=== PATIENT | male | born 1935 | race Caucasian/White ===

== ENCOUNTER 2016-08-24 11:18 | Inpatient (IN) | payer MEDICARE ==
[2016-08-24] VITALS (10 sets, daily range): BP systolic 96–115; BP diastolic 59–75; PULSE 66–78; RESP 20–28; TEMP 99.7; Ht 170.2 cm; Wt 66.6 kg
[~2016-08-24] VITALS: Ht 170.2 cm; Wt 66.6 kg
[~2016-08-24 11:18] MED LIST: ASPI-535 PO; CARV12.579 PO; IBUP-725 PO; TAMS-14 PO; ZOLP10TA5 PO
[2016-08-24] MEDS ORDERED: SOD CHLORIDE 0.9% 1,000 ML IV STA ×3 (11:22→12:05)
--- NOTE | 2016-08-24 11:29 | ERA ---
ER Documentation Chief Complaint Date/Time DATE: 08/24/16 TIME: 11:24 Chief Complaint BIB RA 89 FOR ALOC. BG 156 IN FILED. HPI 81-year-old gentleman who presents via EMS for altered mental status. It appears the patient was found wandering the parking lot by his neighbors. It appears that the patient had a left upper extremity surgery about 8 days ago. The patient is only alert and oriented times person. The patient was confused via EMS run and report. His last known normal was possibly yesterday with a conversation on the phone. In the field his EKG read a possible acute CT however on review this appear to be consistent with a borderline left bundle branch block. The patient denies any chest pain or shortness of breath. He can answer simple questions with a yes or no answer and he can answer to his name. Further history is very limited. ROS All systems reviewed and are negative except as per history of present illness. Medications Home Meds Reported Medications Oxycodone HCl/Acetaminophen (Percocet 10-325 mg Tablet) 1 Each Tablet, 1 EACH PO Q4H WHILE AWAKE Y for PAIN, TAB 08/24/16 Clopidogrel Bisulfate (Clopidogrel) 75 Mg Tablet, 75 MG PO DAILY, #30 TAB 08/24/16 Carbidopa-Levodopa* (Sinemet*) 25-100 Mg Tab, 1 TAB PO TID, TAB 08/24/16 Benazepril-Hydrochlorothiazide (Benazepril-Hydrochlorothiazide) 20-12.5 Mg Tablet, 1 TAB PO DAILY, #30 TAB 08/24/16 Tramadol Hcl* (Ultram*) 50 Mg Tablet, 50 MG PO BID Y for PAIN, TAB 08/24/16 Tamsulosin Hcl* (Flomax*) 0.4 Mg Cap.sr.24h, 0.4 MG PO DAILY 08/23/11 Discontinued Reported Medications Ibuprofen (Motrin) 400 Mg Tablet, 200 MG PO Y 08/23/11 Aspirin Ec (Aspir 81) 81 Mg Tablet.dr, 81 MG PO DAILY 08/23/11 Zolpidem Tartrate* (Zolpidem Tartrate*) 10 Mg Tablet, 10 MG PO HS 1/2 tab 08/23/11 Carvedilol* (Carvedilol*) 12.5 Mg Tablet, 12.5 MG PO BID 08/23/11 Allergies Allergies: Coded Allergies: No Known Allergy (Unverified , 08/24/16) PMhx/Soc History of Surgery: Yes (right shoulder surgery,right knee surgery ,kidney stones removed ) Anesthesia Reaction: No Hx Neurological Disorder: No Hx Respiratory Disorders: No Hx Cardiac Disorders: Yes (hypertension ) Hx Psychiatric Problems: No Hx Miscellaneous Medical Probl: Yes Hx Alcohol Use: No Hx Substance Use: No FmHx Unknown Physical Exam Vitals Vital Signs Date Time Temp Pulse Resp B/P Pulse Ox O2 Delivery O2 Flow Rate FiO2 08/24/16 16:31 99.2 77 17 112/63 100 Room Air 08/24/16 14:30 81 14 107/85 100 Room Air 08/24/16 14:00 83 12 109/83 100 Room Air 08/24/16 13:55 81 12 112/81 100 Room Air 08/24/16 13:30 97.6 84 12 94/61 100 Room Air 08/24/16 13:00 86 12 102/81 100 Room Air 08/24/16 12:30 6 18 92/68 86 Room Air 08/24/16 12:10 96 18 95/70 91 Room Air 08/24/16 11:40 109 18 106/81 97 Room Air 08/24/16 11:25 116 18 95/62 96 Room Air 08/24/16 11:22 117 19 93/69 97 08/24/16 11:22 98.5 Physical Exam General: Well developed, well nourished, no acute distress, appears to be somewhat confused, is able to answer simple questions and his name Head: Normocephalic, atraumatic. Eyes: Pupils equally reactive, EOM intact ENT: Dry mucous membranes Neck: Supple, no lymphadenopathy Respiratory: Lungs clear bilaterally, no distress Cardiovascular: Tachycardia, no murmurs, rubs, or gallops Abdominal: Soft, non-tender, non-distended, no peritoneal signs : Deferred MSK: No edema, no unilateral swelling, 5/5 strength, left upper extremity in a shoulder immobilizer Neurologic: Alert and oriented to person alone, moving all extremities, normal speech, no focal weakness, no cerebellar signs Skin: No rash Psych: Normal mood Result Diagram: 08/24/16 1129 08/24/16 1129 Results 24 hrs Laboratory Tests Test 08/24/16 11:20 08/24/16 11:26 08/24/16 11:29 08/24/16 11:37 Lactic Acid Level 2.7mmol/L Ammonia < 9umol/l Bedside Glucose 151mg/dL White Blood Count 15.510^3/ul Red Blood Count 4.2310^6/ul Hemoglobin 12.6g/dl Hematocrit 38.0% Mean Corpuscular Volume 89.8fl Mean Corpuscular Hemoglobin 29.8pg Mean Corpuscular Hemoglobin Concent 33.2g/dl Red Cell Distribution Width 13.5% Platelet Count 86433^3/UL Mean Platelet Volume 10.1fl Neutrophils % 81.2% Lymphocytes % 6.6% Monocytes % 11.3% Eosinophils % 0.1% Basophils % 0.2% Nucleated Red Blood Cells % 0.0/100WBC Neutrophils # 12.610^3/ul Lymphocytes # 1.010^3/ul Monocytes # 1.810^3/ul Eosinophils # 0.010^3/ul Basophils # 0.010^3/ul Nucleated Red Blood Cells # 0.010^3/ul Prothrombin Time 15.8Sec Prothrombin Time Ratio 1.2 INR International Normalized Ratio 1.25 Activated Partial Thromboplast Time 24.1Sec Sodium Level 133mmol/L Potassium Level 3.8mmol/L Chloride Level 100mmol/L Carbon Dioxide Level 23mmol/L Anion Gap 14 Blood Urea Nitrogen 28mg/dl Creatinine 1.56mg/dl Glucose Level 163mg/dl Calcium Level 9.3mg/dl Total Bilirubin 1.3mg/dl Direct Bilirubin 0.00mg/dl Indirect Bilirubin 1.3mg/dl Aspartate Amino Transf (AST/SGOT) 189IU/L Alanine Aminotransferase (ALT/SGPT) 56IU/L Alkaline Phosphatase 58IU/L Troponin I 63.800ng/ml Total Protein 7.3g/dl Albumin 3.9g/dl Globulin 3.40g/dl Albumin/Globulin Ratio 1.14 Free Thyroxine Index 3.36ug/ml Thyroxine (T4) 7.7ug/dl Triiodothyronine (T3) Uptake 43.7% Ethyl Alcohol Level < 10.0mg/dl Urine Opiates Screen NEGATIVE Urine Barbiturates NEGATIVE Urine Amphetamines Screen NEGATIVE Urine Benzodiazepines Screen NEGATIVE Urine Cocaine Screen NEGATIVE Urine Cannabinoids NEGATIVE Test 08/24/16 11:50 08/24/16 12:00 08/24/16 12:50 08/24/16 14:50 Blood Gas Specimen Source Blood arterial Arterial Blood Date Drawn 08/24/2016 12:20:06 PM Arterial Blood pH (Temp corrected) 7.475 Arterial Blood pCO2 (Temp correct) 31.1mmhg Arterial Blood pO2 (Temp corrected) 64.1mmHG Arterial Blood HCO3 22.4mmol/L Arterial Blood Base Excess -0.4mmol/L Arterial Blood Oxygen Saturation 93.1mmHG Dominik Test ACCEPTAB Arterial Blood Gas Puncture Site Right Radial Arterial Blood Carboxyhemoglobin 0.1% Arterial Blood Methemoglobin 0.4% Blood Gas A-a O2 Differential 48.4mmHg Oxyhemoglobin Percent 92.6% Total Hemoglobin 12.2g/dl Blood Gas Temperature 37.0C Blood Gas Modality ROOM AIR FiO2 21.0% Blood Gas Notified Whom MDA Blood Gas Notified Time 08/24/2016 12:25:31 PM Creatine Kinase 492IU/L Lactic Acid Level 2.2mmol/L Troponin I 66.400ng/ml Urine Color LT. YELLOW Urine Clarity SLIGHTLY CLOUDY Urine pH 6.0 Urine Specific [place] <=1.005 Urine Ketones NEGATIVE Urine Nitrite NEGATIVE Urine Bilirubin NEGATIVE Urine Urobilinogen 0.2 E.U./dL Urine Leukocyte Esterase 1+ Urine Microscopic RBC 0-2/HPF Urine WBC Clumps FEW Urine Microscopic WBC >50/HPF Urine Squamous Epithelial Cells FEW Urine Bacteria MODERATE Urine Yeast RARE Urine Hemoglobin 2+ Urine Glucose NEGATIVE% Urine Total Protein NEGATIVE Test 08/24/16 15:11 Lactic Acid Level 1.2mmol/L Current Medications Medications (Trade) Dose Ordered Sig/Alisson Route PRN Reason Start Time Stop Time Status Last Admin Dose Admin Sodium Chloride 1,000 ml @ 1,000 mls/hr Q1H STAT IV 08/24/16 11:22 08/24/16 12:21 DC 08/24/16 11:29 Sodium Chloride (NS) 1,000 ml @ 1,000 mls/hr Q1H STAT IV 08/24/16 11:34 08/24/16 12:33 DC 08/24/16 12:15 IV Flush 10 ml 10 ml STK-MED ONCE .ROUTE 08/24/16 11:51 08/24/16 11:52 DC Sodium Chloride (NS) 100 ml @ ud STK-MED ONCE .ROUTE 08/24/16 11:51 08/24/16 11:52 DC Iodixanol 100 ml 100 ml STK-MED ONCE .ROUTE 08/24/16 11:51 08/24/16 11:52 DC Sodium Chloride 1,000 ml @ 1,000 mls/hr Q1H STAT IV 08/24/16 12:05 08/24/16 13:04 DC 08/24/16 12:15 Cefepime HCl 50 ml @ 100 mls/hr ONCE STAT IVPB 08/24/16 12:06 08/24/16 12:35 DC 08/24/16 12:30 Vancomycin HCl (Vancocin) 250 ml @ 125 mls/hr ONCE ONCE IVPB 08/24/16 12:30 08/24/16 14:29 DC 08/24/16 13:00 Lidocaine (Xylocaine 1% (Mpf)) 5 ml ONCE ONCE SC 08/24/16 14:00 08/24/16 14:01 DC Heparin Sodium (Porcine) 4800 unit 4,800 unit ONCE STAT IV 08/24/16 13:35 08/24/16 13:37 DC 08/24/16 16:23 Heparin Sodium (Porcine) (Heparin 68215 Units/250 ml) 250 ml @ 0 mls/hr ONCE STAT IV 08/24/16 13:35 08/24/16 13:37 DC 08/24/16 16:30 Aspirin (Aspirin) 324 mg ONCE ONCE PO 08/24/16 14:30 08/24/16 14:31 DC 08/24/16 14:23 Miscellaneous Information (* Miscellaneous Pharmacy Order) DC previous hepa... ONCE ONCE XX 08/24/16 16:30 08/24/16 16:31 DC Heparin Sodium (Porcine) 4000 unit 4,000 unit PER PROTOCOL PRN IV aPTT<47 08/24/16 16:30 Heparin Sodium (Porcine) (Heparin 10993 Units/250 ml) 250 ml @ 9.6 mls/hr PER PROTOCOL IV 08/24/16 18:00 Ondansetron HCl 4 mg 4 mg Q6H PRN IV NAUSEA AND/OR VOMITING 08/24/16 16:30 Ceftriaxone Sodium (Rocephin) 50 ml @ 100 mls/hr Q24H IVPB 08/24/16 21:00 Famotidine 20 mg 20 mg QHS IV 08/24/16 21:00 Fluconazole 100 ml @ 100 mls/hr Q24H IVPB 08/24/16 20:00 Sodium Chloride (NS) 1,000 ml @ 75 mls/hr [id number] IV 08/24/16 21:00 Carbidopa/Levodopa (Sinemet (25/ 100)) 1 tab TID PO 08/24/16 21:00 Clopidogrel Bisulfate (plaVIX) 75 mg DAILY PO 08/25/16 09:00 Tamsulosin HCl (Flomax) 0.4 mg QPM PO 08/24/16 21:00 Tramadol HCl 50 mg 50 mg BID PRN PO PAIN 08/24/16 16:30 Sodium Chloride (NS) 100 ml @ ud STK-MED ONCE .ROUTE 08/24/16 16:41 08/24/16 16:42 DC Procedures/MDM EKG, MONITORS, & DIAGNOSTIC IMAGING: Rhythm strip: From the field Rate/Rhythm: Sinus tachycardia with borderline left bundle branch block Impression: No evidence of ischemia or arrhythmia EKG #1 EKG: I reviewed and interpreted a 12-lead EKG. Rhythm: Sinus tachycardia Ectopy: None Intervals: Borderline prolonged QRS ST segments: No ST segment elevations greater than 1 mm, no ST depressions or reciprocal changes T waves: No contiguous inversions EKG #2: EKG: I reviewed and interpreted a 12-lead EKG. Rhythm: Sinus tachycardia Ectopy: None Intervals: Borderline prolonged QRS ST segments: No ST segment elevations greater than 1 mm, no ST depressions or reciprocal changes T waves: No contiguous inversions Chest x-ray: I reviewed and interpreted a 1 view of the chest Mediastinum: No enlargement Cardiac silhouette: No cardiomegaly Airspace: Clear lung calderon bilaterally without evidence of pneumothorax Bones: No evidence of fracture CT brain: no acute process CTPA: IMPRESSION: 1. Normal CT pulmonary angiogram with no evidence of pulmonary artery embolism. 2. Mild atelectasis at the lung bases posteriorly. 3. Mildly dilated ascending aorta measuring 4 cm. 4. Cardiomegaly. 5. Coronary artery calcification. 6. Benign cysts in the upper kidneys. 7. Atrophic left kidney. 8. Mild degenerative changes of the spine. RPTAT: QQ LAB INTERPRETATION: Multiple abnormalities including leukocytosis of 15.5, arterial blood gas that shows low PaO2, lactic acidosis of 2.7-2.2, creatinine of 1.56, troponin of 63.8 , normal ammonia MEDICAL DECISION MAKING: The patient arrives with altered mental status of unclear etiology. A very broad differential exists including intracranial hemorrhage, subacute stroke, electrolyte disturbance, seizure disorder. Additionally consider possible pulmonary embolism given the patient's recent surgery and sinus tachycardia. The patient's EKG is abnormal but does not meet ST elevation myocardial infarction criteria. Serial EKGs will be appropriate. The patient is not having any chest pain or symptoms at this time. No indication for Trolley Car Overhauler activation. Continue to monitor. ER COURSE: A broad workup was initiated including laboratory testing, the patient was given IV fluids, blood cultures were taken. The patient had significant elevation of troponin at 63.8. His EKGs here showed no evidence of acute cardiac ischemia but significant Q waves. The patient likely has subacute myocardial infarction likely in the past 24-36 hours. He does not report any chest pain. I was able speak to Dr. Varghese, the brake lining driller environmental advisor. I reviewed the EKGs with him. He agrees that these are not consistent with ST elevation myocardial infarction. The patient is currently getting worked up for pulmonary embolism given recent surgical procedure. In the past Dr. Birmingham has performed angiography and stenting. Dr. Varghese recommends Dr. Birmingham be called. I spoke to Dr. Birmingham, we reviewed the laboratory testing, diagnostic imaging and clinical status. He recommends if no PE, heparin bolus and drip, medical support and the patient may benefit from nonemergent angiography. He will consult. The patient's blood pressure is hovering in the 90s and 100s, mean arterial pressures greater than 65. The patient does not require pressors. He may require pressor support therefore PICC line has been ordered. Heparin bolus and drip has been ordered. The patient's creatinine is slightly elevated at 1.56 but given concern for possible critical diagnosis of CTPA was recommended I believe the benefits outweigh the risks. Patient has been hydrated. The patient is altered and unable to give informed consent. There is no family available for informed consent. I believe the PICC line is necessary for continued treatment and care of this patient. The benefits outweigh the risks. A family friend has arrived. It appears the patient does not have family members. She states that the patient is almost returned to baseline. She was informed of the patient's critical status I kept the patient and/or family informed of laboratory and diagnostic imaging results throughout the emergency room course. DISPOSITION PLAN: ICU CONSULTATION: Accepting care team and consultations: I discussed the current laboratory data, diagnostic imaging and emergency care provided. Admitting team: Dr. Gar Admitting team indication: Insurance directed Consulting services: Cardiology Dr. Birmingham Sepsis Documentation: Patient's infectious symptoms have not stabilized and the patient is at risk of rapid decompensation. The patient will be admitted for careful hydration, antibiotic therapy, and infectious source control. SEVERE SEPSIS CRITERIA: Infectious source: Urinary tract infection End organ damage indicated by: [Lactate > 2.0 mmol/L Hypotension (SBP < 90 or >40 mmHG drop or MAP < 65) SEPSIS MANAGEMENT Time of recognition of severe sepsis/septic shock: Around 4 PM when urinalysis resulted. It appears that the lab has misplaced the original specimen. This was the only time his source was identified. 3 HOUR BUNDLE Blood cultures x 2 before broad-spectrum antibiotics: Yes 30 ml/kg NS bolus Completed Initial lactate 2.2 Repeat lactate 1.2 SEPTIC SHOCK ASSESSMENT: No lactic acid > 4.0 No persistent hypotension (SBP < 90 or 40 mmHg drop, MAP < 65) despite 30 mL/kg IV fluid bolus VOLUME REASSESSMENT FOR SEPTIC SHOCK: Reevaluation Time: 4 PM Temperature of 99.2 heart rate of 77 respiratory rate 17 blood pressure 112/63 pulse ox 100% on nasal cannula Heart Regular rate & rhythm Lungs No crackles Skin Warm & dry Cap Refill Less than 2 seconds Peripheral pulses Radially present PERSISTENT HYPOTENSION TREATMENT: Comfort care No Central line PICC line Vasopressor started Not required I considered further perfusion assessment with CVP measurement, SCVO2, bedside ultrasound volume assessment, passive leg raise, trial of further fluid bolus. And proceeded with 30 ml/kg fluid bolus of NSS, broad spectrum antbiotics, and admission. CRITICAL CARE Critical care time 35 minutes Emergent fluid management while maintaining close respiratory support. Provision of immediate and broad-spectrum antibiotic therapy. Simultaneous assessment for possible sources in order to direct targeted therapy. Consideration for invasive and chemical support to prevent cardiopulmonary collapse. Critical care time is independent of procedures performed. Departure Diagnosis: Primary Impression: Altered level of consciousness Additional Impressions: Non-ST elevation myocardial infarction (NSTEMI) Cardiogenic shock SIRS (systemic inflammatory response syndrome) Acute renal insufficiency Severe sepsis Urinary tract infection Qualified Code: N30.00 - Acute cystitis without hematuria Condition: Serious BORM, VERONICA A., MD August 24, 2016 11:29
[2016-08-24 11:41] LABS: ADD SCAN DIFF NO
[2016-08-24 11:45] LABS: ABNORMAL IP MESSAGE 1; BASOPHILS % 0.2 % (0.0-2.0); EOSINOPHILS % 0.1 % (0.0-7.0); HEMOGLOBIN 12.6 g/dl (14.0-18.0); LYMPHOCYTES % 6.6 % (15.0-51.0); MEAN CORPUSCULAR HEMOGLOBIN 29.8 pg (29.0-33.0); MEAN CORPUSCULAR HGB CONC 33.2 g/dl (32.0-37.0); MEAN CORPUSCULAR VOLUME 89.8 fl (82.0-101.0); MEAN PLATELET VOLUME 10.1 fl (7.4-10.4); MONOCYTE # 1.8 10^3/ul (0.3-0.9); MONOCYTES % 11.3 % (0.0-11.0); NEUTROPHIL # 12.6 10^3/ul (1.6-7.5); NEUTROPHILS % 81.2 % (39.0-77.0); PLATELET COUNT 279 10^3/UL (140-415); RED BLOOD COUNT 4.23 10^6/ul (4.70-6.10); RED CELL DISTRIBUTION WIDTH 13.5 % (11.5-14.5); WHITE BLOOD COUNT 15.5 10^3/ul (4.8-10.8)
[2016-08-24] MEDS ORDERED: SOD CHLORIDE 0.9% 100 ML ONE ×2 (11:51→16:41)
[2016-08-24] MEDS ORDERED: IODIXANOL LOCM 100 ML BTL ONE (11:51)
--- NOTE | 2016-08-24 11:56 | RADRPT ---
PROCEDURE: CT Brain without contrast. CLINICAL INDICATION: Neurologic deficit TECHNIQUE: A CT of the brain was performed on multidetector high-resolution CT scanner utilizing a xial sections from the skull base through the vertex without contrast. One or more of the following dose reduction techniques were used: Automated exposure control, Adjustment of the mA and/or kV acc ording to patient size, and/or use of iterative reconstruction technique. DOSE: CTDI = 44 mGy and the DLP = 720 mGy-cm. COMPARISON: None available FINDINGS: No acute intracranial hemorrhage, significant mass effect or midline shift. Patchy hypoattenuation o f the cerebral white matter is compatible with mild chronic microvascular ischemic changes. Vascular calcifications. Prominence of the cortical sulci and ventricles are related to mild cerebral volum e loss. No significant opacification of the visualized paranasal sinuses or mastoids. IMPRESSION: No acute intracranial findings. 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 RPTAT: AA .Asad King MD, MD Date Time Electronically viewed and signed by .Asad King MD, on 08/24/2016 11:56 .T/
[2016-08-24 12:01] LABS: INR 1.25; PROTIME 15.8 Sec (12.2-14.2); PT RATIO 1.2
[2016-08-24 12:02] LABS: PARTIAL THROMBOPLASTIN TIME 24.1 Sec (25.0-35.0)
[2016-08-24 12:04] LABS: ALANINE AMINOTRANSFERASE 56 IU/L (13-69); ALBUMIN 3.9 g/dl (3.3-4.9); ALBUMIN/GLOBULIN RATIO 1.14; ALKALINE PHOSPHATASE 58 IU/L (42-121); ANION GAP 14 (8-16); ASPARTATE AMINO TRANSFERASE 189 IU/L (15-46); BILIRUBIN,INDIRECT 1.3 mg/dl (0-1.1); BILIRUBIN,TOTAL 1.3 mg/dl (0.2-1.3); BLOOD UREA NITROGEN 28 mg/dl (7-20); CALCIUM 9.3 mg/dl (8.4-10.2); CARBON DIOXIDE 23 mmol/L (21-31); CHLORIDE 100 mmol/L (97-110); CREATININE 1.56 mg/dl (0.61-1.24); GLUCOSE 163 mg/dl (70-220); POTASSIUM 3.8 mmol/L (3.5-5.1); SODIUM 133 mmol/L (135-144); TOTAL PROTEIN 7.3 g/dl (6.1-8.1)
[2016-08-24 12:05] LABS: LACTIC ACID 2.7 mmol/L (0.5-2.2)
[2016-08-24] MEDS ORDERED: CEFEPIME 2GM/50 ML (PMX) 50 ML IVPB STA (12:06)
[2016-08-24 12:13] LABS: AMMONIA < 9 umol/l (9-30)
[2016-08-24 12:21] LABS: T3 UPTAKE 43.7 % (23.5-40.5)
[2016-08-24 12:26] LABS: AADO2 Arterial 48.4 mmHg (7.0-24.0); Allen Test ACCEPTAB; Arterial Base Excess -0.4 mmol/L (-3.0-3); Arterial COHb 0.1 % (0.0-3.0); Arterial Fraction of Oxyhgb 92.6 % (93.0-99.0); Arterial HCO3 22.4 mmol/L (22.0-26.0); Arterial MetHb 0.4 % (0.0-1.5); Arterial Total Hemglobin 12.2 g/dl (12.0-18.0); MODE ROOM AIR
--- NOTE | 2016-08-24 12:26 | RADRPT ---
PROCEDURE: XR Chest. CLINICAL INDICATION: Shortness of breath. Altered mental status. TECHNIQUE: Single frontal view. COMPARISON: None. FINDINGS: There is mild atelectasis at the left lung base. Superimposed pneumonia cannot be excluded. The julio cesar ngs are otherwise clear. The heart size is normal. There is no pleural effusion. There is no pneumothorax. IMPRESSION: 1. Mild left basilar atelectasis and possible pneumonia. 2. Otherwise normal chest radiograph. RPTAT: QQ .Luc Zuniga MD, Date Time Electronically viewed and signed by .Luc Zuniga MD, on 08/24/2016 12:26 .R/
[2016-08-24] MEDS ORDERED: VANCOMYCIN 1 GM (PMX) 250 ML IVPB ONE (12:30)
[2016-08-24 12:37] LABS: ETHANOL < 10.0 mg/dl
[2016-08-24] MEDS ORDERED: TRAM-40 PO (13:08)
[2016-08-24] MEDS ORDERED: BENA1TAB13 PO (13:08)
[2016-08-24] MEDS ORDERED: SIN25100 PO (13:09)
[2016-08-24] MEDS ORDERED: CLOP75TA27 PO (13:09)
[2016-08-24] MEDS ORDERED: OXYC-209 PO (13:11)
--- NOTE | 2016-08-24 13:19 | RADRPT ---
PROCEDURE: CT Pulmonary Angiogram. CLINICAL INDICATION: Chest pain and shortness of breath. Altered mental status. TECHNIQUE: CT pulmonary angiogram and a CT scan of the chest with contrast was performed. The pat ient was scanned following the uncomplicated intravenous administration of 80 cc of Visipaque 320 in travenous contrast. 2-D coronal reformatted images were obtained from the axial source images. In addition, 3-D post processing was performed. Total exam DLP is 524.75 mGy-cm. CTDIvol is 25.35 mGy . One or more of the following dose reduction techniques were used: Automated exposure control, adj ustment of the mA and/or kV according to patient size, use of iterative reconstruction technique. COMPARISON: None available. FINDINGS: The pulmonary arteries are normal with no filling defect or lack of enhancement to suggest pulmonary artery embolism. There is mild atelectasis at both lung bases posteriorly. The lungs are otherwise clear. There is no pulmonary nodule or mass lesion. There is no pneumothorax. There is no mediastinal or hilar lymphadenopathy or mass. There is no pleural effusion. There is no pericardial effusion. The thoracic aorta is not well opacified. The the ascending thoracic aorta is not dilated measuring 4 cm in diameter. The transverse aorta and descending aorta are normal in diameter. There is calc ification in the aorta consistent with atherosclerosis. The heart is mildly enlarged. There is cor onary artery calcification. Images through the upper abdomen demonstrate normal visualized portions of the liver, spleen, and ad renals. There is a benign cyst posteriorly in the upper right kidney. The left kidney is atrophic a nd there is a benign cyst superiorly in the left kidney. There are mild degenerative changes of the spine. The osseous structures are otherwise normal with no fracture or lytic lesion. IMPRESSION: 1. Normal CT pulmonary angiogram with no evidence of pulmonary artery embolism. 2. Mild atelectasis at the lung bases posteriorly. 3. Mildly dilated ascending aorta measuring 4 cm. 4. Cardiomegaly. 5. Coronary artery calcification. 6. Benign cysts in the upper kidneys. 7. Atrophic left kidney. 8. Mild degenerative changes of the spine. RPTAT: QQ .Luc Zuniga MD, MD Date Time Electronically viewed and signed by .Luc Zuniga MD, on 08/24/2016 13:19 .R/
[2016-08-24] MEDS ORDERED: HEPARIN 1000 UNITS/ML 10 ML INJ IV STA (13:35)
[2016-08-24] MEDS ORDERED: HEPARIN 25000 UNITS/250 ML 250 ML IV STA (13:35)
[2016-08-24] MEDS ORDERED: LIDOCAINE 1% (MPF) 5 ML VIAL SC ONE (14:00)
[2016-08-24 14:02] LABS: BARBITURATES NEGATIVE (NEGATIVE); BENZODIAZEPINES NEGATIVE (NEGATIVE); CANNABINOIDS NEGATIVE (NEGATIVE); COCAINE NEGATIVE (NEGATIVE); OPIATES NEGATIVE (NEGATIVE)
[2016-08-24] MEDS ORDERED: ASPIRIN 81 MG TAB PO ONE (14:30)
--- NOTE | 2016-08-24 15:13 | RADRPT ---
PROCEDURE: US guidance for PICC line CLINICAL INDICATION: PICC line placement TECHNIQUE: Multiple real-time images were acquired of the patient's arm utilizing a high resolutio n transducer. This was performed by the PICC line nurse for venous access. COMPARISON: None FINDINGS: Ultrasound guidance for PICC line placement. IMPRESSION: Ultrasound guidance for PICC line placement. RPTAT: AA .Dany Alaniz MD, MD Date Time Electronically viewed and signed by .Dany Alaniz MD, on 08/24/2016 15:13 .S/
[2016-08-24 15:19] LABS: ADD UMIC YES; URINE BILIRUBIN (Dip) NEGATIVE (NEGATIVE); URINE BLOOD (Dip) 2+ (NEGATIVE); URINE COLOR LT. YELLOW (YELLOW); URINE GLUCOSE (Dip) NEGATIVE (NEGATIVE); URINE KETONES (Dip) NEGATIVE (NEGATIVE); URINE LEUKOCYTE ESTERASE (Dip) 1+ (NEGATIVE); URINE NITRITE (Dip) NEGATIVE (NEGATIVE); URINE UROBILINOGEN (Dip) 0.2 E.U./dL (0.1-1.0)
[2016-08-24 16:00] LABS: BACTERIA,URINE MODERATE; URINE RBCS 0-2 /HPF (0)
[2016-08-24 16:02] LABS: SQUAMOUS EPITHELIAL CELL,UR FEW
[2016-08-24 16:03] LABS: URINE TOTAL PROTEIN (Dip) NEGATIVE (NEGATIVE)
--- NOTE | 2016-08-24 16:26 | RADRPT ---
PROCEDURE: Chest 1 views. CLINICAL INDICATION: Status post PICC line placed TECHNIQUE: AP views of the chest were obtained. COMPARISON: August 24, 2016 at 12:[address] August 24, 2016 FINDINGS: The heart size is within normal limits. Calcified atherosclerosis is noted in the aorta. Right-sided PICC line has its tip in the expected location of the distal superior vena cava. Central pulmonary vascular congestion and interstitial prominence is seen in both lungs. Scattered atelectasis is no saumya in both lungs. No consolidations are identified. No pneumothorax is seen. Osseous structures a re intact. IMPRESSION: Calcified atherosclerosis in the aorta. Right PICC line with its tip in the expected location of the distal superior vena cava. Central pulmonary vascular congestion and interstitial prominence in both lungs. Scattered atelectasis in both lungs. RPTAT: AA .Satinder Song MD, MD Date Time Electronically viewed and signed by .Satinder Song MD, MD on 08/24/2016 16:25 .P/
[2016-08-24] MEDS ORDERED: traMADol 50 MG TAB PO PRN (16:30)
[2016-08-24] MEDS ORDERED: ONDANSETRON 4 MG INJ IV PRN (16:30)
[2016-08-24] MEDS ORDERED: NITROGLYCERIN (SL) 0.4 MG TAB SL ONE (17:00)
[2016-08-24 18:36] LABS: CK-MB 27.3 ng/ml (0.0-2.4)
--- NOTE | 2016-08-24 18:43 | RADRPT ---
Echocardiogram Report Patient Name: OXANA COLORADO Gender: Male Date: 1935 Study Date: 24-Aug-2016 Adjunct English Instructor: Michele Foote RDCS Location: [facility] Ref. Physician: VERONICA PEREZ Quality: Adequate Procedures: Transthoracic echocardiogram with complete 2D, M-Mode, and doppler examination. Indications: NSTEMI. 2D/M Mode Doppler Measurement Value Normal Ranges Measurement Value Normal Ranges LVIDd 2D 4.9 3.5 - 5.6 cm AV Peak Nikunj 1.2 m/sec LVIDs 2D 2.8 2.1 - 4.1 cm AV Peak PG 5.4 mmHg LVPWd 2D 1.0 0.6 - 1.1 cm LVOT Peak Nikunj 0.8 m/sec IVSd 2D 1.1 0.6 - 1.1 cm LVOT Peak PG 2.7 mmHg AoR Diam 2D 3.1 2.0 - 3.7 cm MV E Peak Nikunj 0.6 m/sec EDV 2D 110.5 cm3 MV A Peak Nikunj 1.0 m/sec ESV 2D 22.0 cm3 MV E/A 0.6 LA Dimen 2D 3.9 2.3 - 4.0 cm MV Decel Time 131 msec MV Decel [place] 4 MV E/A 0.6 TR Peak Nikunj 2.5 m/sec TR Peak PG 25.1 mmHg RVSP 33.0 mmHg Findings Left Ventricle: Normal left ventricular cavity size. Mild concentric left ventricular hypertrophy. Severe left ventricular systolic dysfunction. Ejection fraction is visually estimated at 2530 %. Tissue Doppler/Mitral Doppler indices are consistent with impaired relaxation (Stage I diastolic dysfunction). These segments of the LV are hypokinetic apex, anteroseptum mid segment, mid septum segment, apical septum, Lateral apex, Lateral mid segment and anterior apex segment. Right Ventricle: Normal right ventricular size. Normal right ventricular systolic function. Left Atrium: The left atrium is normal in size. Right Atrium: The right atrium is normal in size. Mitral Valve: Mitral valve leaflets appear mildly thickened. Mild mitral annular calcification. Trace mitral regurgitation. Aortic Valve: No hemodynamically significant aortic stenosis by doppler. Aortic cusps appear mildly calcified. Trace aortic valve regurgitation. Tricuspid Valve: Normal appearance of the tricuspid valve. Estimated peak PA systolic pressure 33 mmHg. There is mild tricuspid regurgitation. Pulmonic Valve: Pulmonic valve not well visualized. Pericardium: Trivial pericardial effusion. Aorta: Normal aortic root. IVC: Dilated IVC with respiratory collapse consistent with elevated right atrial pressure. Conclusions 1.Normal left ventricular cavity size. Mild concentric left ventricular hypertrophy. Severe left ventricular systolic dysfunction. Ejection fraction is visually estimated at 25-30 %. Tissue Doppler/Mitral Doppler indices are consistent with impaired relaxation (Stage I diastolic dysfunction). These segments of the LV are hypokinetic apex, anteroseptum mid segment, mid septum segment, apical septum, Lateral apex, Lateral mid segment and anterior apex segment. 2.Trace mitral regurgitation. 3.Trace aortic valve regurgitation. 4.Estimated peak PA systolic pressure 33 mmHg. There is mild tricuspid regurgitation. Electronically Signed By: Errol Birmingham 24-Aug-2016 18:43:22 -0700 Patient Name: OXANA COLORADO Study Date: 24-Aug-2016 [id number]
[2016-08-24 18:44] LABS: TROPONIN-I 49.8 ng/ml (0.00-0.12)
[2016-08-24] MEDS: HEPARIN 25000 UNITS/250 ML 250 ML IV SCH (20:07)
--- NOTE | 2016-08-24 20:33 | HP ---
DATE OF ADMISSION: 08/24/2016 PRESENTING COMPLAINT: Altered mental status. HISTORY OF PRESENTING COMPLAINT: Unable to get a history from the patient due to his mentation; however, this is an 81-year-old male who was brought in by ambulance because of alteration of mental status. Apparently, per report from the emergency room doctor, the patient was found wandering in the parking lot by his neighbors and the only history we were really able to obtain is that he had a left upper extremity surgery a few days ago, the indication of which was not clear. There is no family at the bedside. Apparently, when the patient first came, he was alert to his own name, but was not oriented to his location, but was said to have been normal as of yesterday with a conversation with someone else on the telephone. There was concern about an acute ST elevation myocardial infarction on an EKG in the field, but this was not consistent with an EKG done in the emergency room. When patient was asked about chest pain , he replied no; however, for me, he is not cooperative with exam. No other history is obtainable. REVIEW OF SYSTEMS: Unobtainable due to patient's overall status. HOME MEDICATIONS 1. Percocet. 2. Plavix. 3. Carbidopa/levodopa. 4. Benazepril/hydrochlorothiazide. 5. Ultram. 6. Flomax. PAST SURGICAL HISTORY: Per report, he has had right shoulder surgery, right knee surgery and removal of kidney stones, and now with left upper extremity surgery. ALLERGIES: THE PATIENT HAS NO KNOWN DRUG ALLERGIES. FAMILY HISTORY: Unobtainable. SOCIAL HISTORY: Also unknown. PHYSICAL EXAMINATION VITAL SIGNS: At the time of my review, temperature 97.6, pulse 81, respirations 14, blood pressure 107/85, saturations 100% on room air. GENERAL: The patient was sleepy and did not want to be bothered, but he would look comfortable at rest. HEENT: Head was normocephalic, without evidence of trauma. Pupils were unequal , but both reactive. Mucous membranes were dry. The patient was not intubated. NECK: Supple, no obvious JVD noted. RESPIRATORY: Diminished breath sounds, but clear. CARDIOVASCULAR: Heart sounds are S1 and S2. He was tachycardic when he first came in, but at this time, he is not. No murmurs. ABDOMEN: Soft, nontender, nondistended, normoactive bowel sounds. EXTREMITIES: No lower extremity edema. His left upper extremity is in a splint but he seems to no other abnormality noted. NEUROLOGIC: Detailed neurologic exam could not be done. SKIN: No gross rash. PSYCHIATRIC: Uncooperative. LABORATORY VALUES: We have a serum sodium of 133, which is on the low side. BUN and creatinine are elevated at 28 and 1.56. Random glucose is normal at 163. There is a mild hyperbilirubinemia with an indirect bilirubin of 1.3. AST is also mildly elevated at 189, but ALT is normal. Alkaline phosphatase is also normal. Troponin was significantly elevated at 63.8. Ammonia was less than 9. A thyroid free T4 was normal. His hematology had a leukocytosis of 15, 000; with a hemoglobin of 12, but with normocytosis and normochromia. He does have a neutrophilic predominance at 81%, of which most of those are monocytes. His urinalysis had a lot of the white blood cells and leukocyte esterase was positive with moderate bacteria . He also had 2+ hemoglobin. Coag profile, his indices were mildly elevated with an INR of 1.2 and a PT of 15.8. Toxicology screen was negative. IMAGING: The patient had multiple imaging studies done today. First was a chest x-ray that showed mild left basilar atelectasis and possible pneumonia; otherwise, normal. Then a CT scan of the brain that showed mild chronic microvascular disease and intracranial atherosclerosis without acute intracranial findings. A CTA of the chest that was read as normal, without evidence of pulmonary embolism, but he did have some posterior atelectasis. His ascending aorta was mildly dilated to 4 cm. Cardiomegaly was noted with coronary artery calcifications. Benign cysts in upper kidneys, an atrophic left kidney and mild degenerative changes of the spine. DATA: He had a PICC line also inserted while in the emergency room. ELECTROCARDIOGRAM: His EKG here was reviewed by myself and it was abnormal, but there was no consistent ST elevation or reciprocal depressions. His EKG was also reviewed by STEMI manager it security, and was assessed not to be a STEMI. DIAGNOSES An 81-year-old male found wandering in the parking lot, now managed for the followin. Acute encephalopathy for which the source is not quite clear. It could be secondary to the following. 2. Severe non-ST elevation myocardial infarction with troponin of 63. Rule out underlying rhabdomyolysis. 3. Acute renal failure/dehydration, likely superimposed on chronic kidney disease with atrophic left kidney on CT. 4. Urinary tract infection bacteria/yeast. 5. Recent left upper extremity surgery. 6. Probable coronary artery disease as patient is on Plavix versus a history of previous stroke. 7. Chronic Parkinson disease, on carbidopa/levodopa, which might indicate an underlying chronic encephalopathy. 8. High blood pressure with good control. 9. Benign prostatic hypertrophy. 10. Mild transaminitis with elevated AST and hyperbilirubinemia, for which, again, the source is not clear. PLAN: Admit the patient. The patient is going to be admitted to the intensive care unit because of his severe NSTEMI. At this point, Cardiology has opted to medically manage and intervene when patient is more stable. So we will continue to trend troponins and get a 2D echo. The patient will be started on a Heparin drip. Cardiology consultation will be obtained, and we will follow up cardiology recommendations. The patient was seen and reviewed by Dr. Birmingham by telephone. We will see if he will continue to follow in consultation. We will commence empiric antibiotics to cover for pneumonia, as well as urinary tract infection and I also included antifungal in his regimen. We will gently rehydrate, obtain blood as well as urine cultures. We will continue on his home meds as safely indicated, and further interventions will depend on his clinical course. I am unable to review this plan of care with the patient. The patient barely speaking to me at this time. Will review again in the morning when hopefully his mentation has improved. Further interventions will depend on his clinical course. For prophylaxis, he is going to be on a Heparin drip and he going to be on intravenous Pepcid as well. Dictated By: YAMILKA WOODRUFF MD, BA/MOHAMUD Conf#: [id number] DID#: [id number] MTDAnn
[2016-08-24] MEDS: FAMOTIDINE 20 MG INJ IV SCH (20:40)
[2016-08-24] MEDS: SOD CHLORIDE 0.9% 1,000 ML IV SCH (20:40)
[2016-08-24] MEDS: TAMSULOSIN (SR) 0.4 MG CAP PO SCH (20:41)
[2016-08-24] MEDS: ATORVASTATIN 80 MG TAB PO SCH (20:41)
[2016-08-24] MEDS: CEFTRIAXONE 1 GM/50 ML (PMX) 50 ML IVPB SCH (20:41)
[2016-08-24] MEDS: CARBIDOPA/LEVODOPA (25/100) TAB PO SCH (20:41)
--- NOTE | 2016-08-24 20:55 | CONS ---
DATE OF ADMISSION: 08/24/2016 DATE OF CONSULTATION: 08/24/2016 CARDIOLOGY CONSULTATION REASON FOR CONSULTATION: Acute myocardial infarction. REQUESTING PHYSICIAN: Dr. Woodruff from the hospitalist service [facility] HISTORY OF PRESENT ILLNESS: Mr. 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 Kaiden Mcclellan. The patient post-surgery and had been found to be confused and wanderin g by EMS. The patient was brought to the emergency department here at [facility]. Upon arrival, temperature of 98.5, blood pressure 93/69, pulse 117, respiration 19, satting 97%. The patient's labs, sodium 133, potassium 3.8, creatinine 1.56, BUN 28. Troponin positive at 63.8, AST 189, T4 3.36. Tox screen negative. UA positive. The patient had a CT, CTA revealing mild atel ectasis at the lung bases, mildly dilated ascending aorta, cardiomegaly, atrophic left kidney. The patient underwent a chest x-ray with mild left basilar atelectasis and possible pneumonia and a head CT that revealed no acute intracranial findings, mild chronic microvascular disease and intracrania l atherosclerosis. The patient's electrocardiogram revealed sinus tach at a rate 118 with left axis deviation, anterior anteroseptal Q's across the precordium. The patient thus far in the emergency department has been treated with IV fluid hydration with improvement in his systolic blood pressure, aspirin 325 mg, heparin IV, vancomycin, cefepime and now awaits admit to the ICU. At this time, th e patient remains confused, but denies chest pain, shortness of breath. PAST MEDICAL HISTORY: As above in HPI. MEDICATIONS CURRENTLY IN THE HOSPITAL: 1. Plavix 75 mg daily. 2. Ceftriaxone IV daily. 3. Pepcid 20 mg IV at bedtime. 4. Sinemet 1 tab p.o. t.i.d. 5. Flomax 0.4 mg daily. 6. Fluconazole. 7. Heparin IV. 8. Zofran p.r.n. 9. Tramadol p.r.n. ALLERGIES: NO KNOWN DRUG ALLERGIES. SOCIAL HISTORY: No tobacco, ETOH or illicit drug use. FAMILY HISTORY: No history of sudden cardiac or early CAD. REVIEW OF SYSTEMS: As above in HPI. CONSTITUTIONAL: No fevers, chills. PULMONARY: No current shortness of breath. CARDIOVASCULAR: Acute VT. No current chest pain. GASTROINTESTINAL: No vomiting. GENITOURINARY: Urinary tract infection. MUSCULOSKELETAL: Degenerative joint disease. NEUROLOGIC: Encephalopathy. PHYSICAL EXAMINATION: VITAL SIGNS: Temperature 98.5, blood pressure most recently 112/63, pulse 77, respiratory rate 17, satting 100%. GENERAL: The patient is alert, confused. NECK: JVP of 8 cm of water. CHEST: Upper airway transmitted rhonchorous sounds. HEART: Regular rate and rhythm. Normal S1, S2, I/ systolic murmur. ABDOMEN: Positive bowel sounds, soft. EXTREMITIES: No edema, 1+ pulses bilaterally, it is posterior tibial. LABORATORIES: As above in HPI with a repeat troponin coming back at 66.4, from 63.8. No CK-MB with that. IMAGING STUDIES: As above in HPI. No further imaging studies for my review at this time. ECG: As above in HPI. No further electrocardiograms for my review at this time. IMPRESSION: 1. Acute myocardial infarction. Currently with ongoing renal failure and denies chest pain. Hemod ynamically stable. 2. Abnormal electrocardiogram with anterior anteroseptal Q's indicative of the patient's infarction that has probably just subacutely occurred. 3. History of percutaneous transluminal coronary angioplasty and stent placement in 2011 with possi ble recent stoppage of Plavix for surgery per chart biopsy. 4. Status post recent left upper extremity surgery in the last 1 week. 5. Renal failure. 6. Encephalopathy. 7. Hyponatremia. 8. Urinary tract infection. 9. Leukocytosis. 10. Anemia. RECOMMENDATIONS: 1. At this time, would admit the patient to sock mender in the ICU for close observation. 2. Continue to trend the patient's cardiac enzymes and include CK, CK-MB in the setting of renal fa ilure, to assess for any ongoing damage. 3. Continue the patient's Plavix and heparin. We will add aspirin to the patient's regimen additio ephraim. 4. We will follow the patient's 2D echo done today for assessment of ejection fraction, wall motion and any major valve abnormalities. 5. Check a fasting lipid panel for general risk stratification and we will initiate the patient on lipid lowering medication as necessary. 6. Continue the patient's antibiotics and follow up all culture data. 7. The patient will likely require left heart catheterization with possible probable PTCA and stent placement which will occur once the patient's mental status and hemodynamics and renal function hav e been optimized. Thank you for allowing me to take part in the care of this patient. I will continue to follow along very closely with you. Further recommendations will be made as the patient progresses through his inpatient hospital clinical course. Dictated By: CHANTALE PIÑA/MOHAMUD Conf#: [id number] DID#: [id number] CC: VERONICA BURR MD; YAMILKA WOODRUFF MD;*End*
[2016-08-24] MEDS: FLUCONAZOLE 200 MG/NS (PMX) 100 ML IVPB SCH (21:42)
[2016-08-25] VITALS (24 sets, daily range): BP systolic 87–136; BP diastolic 44–90; PULSE 60–86; RESP 14–29
[2016-08-25 01:23] LABS: CK-MB 18.5 ng/ml (0.0-2.4); TROPONIN-I 42.2 ng/ml (0.00-0.12)
[2016-08-25] MEDS: HEPARIN 1000 UNITS/ML 10 ML INJ IV PRN ×2 (02:30→15:41)
[2016-08-25 06:33] LABS: ADD SCAN DIFF NO
[2016-08-25 06:51] LABS: BASOPHILS % 0.4 % (0.0-2.0); EOSINOPHILS # 0.1 10^3/ul (0.0-0.5); EOSINOPHILS % 0.6 % (0.0-7.0); HEMATOCRIT 30.2 % (42.0-52.0); HEMOGLOBIN 9.8 g/dl (14.0-18.0); LYMPHOCYTES # 1.1 10^3/ul (0.8-2.9); LYMPHOCYTES % 13.1 % (15.0-51.0); MEAN CORPUSCULAR HEMOGLOBIN 29.8 pg (29.0-33.0); MEAN CORPUSCULAR HGB CONC 32.5 g/dl (32.0-37.0); MEAN CORPUSCULAR VOLUME 91.8 fl (82.0-101.0); MEAN PLATELET VOLUME 10.5 fl (7.4-10.4); MONOCYTE # 0.9 10^3/ul (0.3-0.9); MONOCYTES % 10.8 % (0.0-11.0); NEUTROPHIL # 6.4 10^3/ul (1.6-7.5); NEUTROPHILS % 74.6 % (39.0-77.0); PLATELET COUNT 192 10^3/UL (140-415); RED BLOOD COUNT 3.29 10^6/ul (4.70-6.10); RED CELL DISTRIBUTION WIDTH 13.9 % (11.5-14.5); WHITE BLOOD COUNT 8.5 10^3/ul (4.8-10.8)
[2016-08-25 07:43] LABS: CALCIUM 8.2 mg/dl (8.4-10.2); MAGNESIUM 1.9 mg/dl (1.7-2.5); POTASSIUM 3.4 mmol/L (3.5-5.1)
[2016-08-25] MEDS: ASPIRIN 81 MG TAB PO SCH (08:13)
[2016-08-25] MEDS: CARBIDOPA/LEVODOPA (25/100) TAB PO SCH ×3 (08:14→20:48)
[2016-08-25] MEDS ORDERED: CLOPIDOGREL 75 MG TAB PO SCH (09:00)
[2016-08-25] MEDS: SOD CHLORIDE 0.9% 1,000 ML IV SCH (10:47)
[2016-08-25] MEDS ORDERED: POTASSIUM CHLORIDE (SR) 20 MEQ TAB PO STA (13:12)
--- NOTE | 2016-08-25 13:19 | CONS ---
Date/Time of Note Date/Time of Note DATE: 08/25/16 TIME: 13:08 Assessment/Plan Assessment/Plan Chief Complaint/Hosp Course IMPRESSION: 1. Acute myocardial infarction. Currently with ongoing renal failure and denies chest pain. Hemodynamically stable.-currently downtrending cardiac enzymes 2. Abnormal electrocardiogram with anterior anteroseptal Q's indicative of the patient's infarction that has probably just subacutely occurred. 3. History of percutaneous transluminal coronary angioplasty and stent placement in 2011 with possible recent stoppage of Plavix for surgery per chart biopsy. 4. Status post recent left upper extremity surgery in the last 1 week. 5. Renal failure-improved 6. Encephalopathy. 7. Hyponatremia. 8. Urinary tract infection. 9. Leukocytosis. 10. Anemia. 11.Cardiomyopathy-decreased LVEF 25-30 by echo by s admit REcc: -Tele -serial ecg's -Continue asa/heparin -Resume plavix -Trend cardiac enzymes -Continue statin -Follow volume status closely and decrease rate of IVF -replete [facility] -[facility] with possible PTCA/STENT Problems: Consultation Date/Type/Reason Admit Date/Time August 24, 2016 at 16:07 Initial Consult Date 08/24/2016 Type of Consultation: Cardiology Reason for Consultation Acute [place] Referring Provider: YAMILKA WOODRUFF Exam/Review of Systems Vital Signs Vitals Vital Signs Date Time Temp Pulse Resp B/P Pulse Ox O2 Delivery O2 Flow Rate FiO2 08/25/16 09:00 86 21 111/86 98 Nasal Cannula 2.0 08/25/16 08:00 98.1 Intake and Output 08/24/16 08/24/16 08/25/16 15:00 23:00 07:00 Intake Total 2300 ml 1458.5 ml 756.5 ml Output Total 820 ml 295 ml Balance 2300 ml 638.5 ml 461.5 ml Exam Review of Systems: CONSTITUTIONAL: No fevers, chills. PULMONARY: No sob CARDIOVASCULAR: No chest pain/palpitations GASTROINTESTINAL: No nausea/vomiting. GENITOURINARY: No hematuria/dysuria. MUSCULOSKELETAL: No myagias/arthalgias. PSYCHIATRIC: The patient denies depression. NEUROLOGIC: mild generalized weakness Constitutional: alert Psych: confusion Head: normocephalic ENMT: mucosa pink and moist Neck: jvd (8 cm water), supple Respiratory: diminished breath sounds (at basers/B) Cardiovascular: regular rate and rhythm Gastrointestinal: non-tender, soft Musculoskeletal: muscle tone (normal), other (shoulder covered by dressing) Extremities: edema (none) Neurological: confused Results Result Diagram: 08/25/16 0545 08/25/16 0545 Results 24 hrs Laboratory Tests Test 08/24/16 14:50 08/24/16 15:11 08/24/16 18:00 08/25/16 00:30 Urine Color LT. YELLOW Urine Clarity SLIGHTLY CLOUDY Urine pH 6.0 Urine Specific Saxon <=1.005 L Urine Ketones NEGATIVE Urine Nitrite NEGATIVE Urine Bilirubin NEGATIVE Urine Urobilinogen 0.2 E.U./dL Urine Leukocyte Esterase 1+ H Urine Microscopic RBC 0-2 Urine WBC Clumps FEW Urine Microscopic WBC >50 Urine Squamous Epithelial Cells FEW Urine Bacteria MODERATE Urine Yeast RARE Urine Hemoglobin 2+ H Urine Glucose NEGATIVE Urine Total Protein NEGATIVE Lactic Acid Level 1.2 Activated Partial Thromboplast Time 107.6 *H 43.7 H Creatine Kinase 503 H 392 H Creatine Kinase Index 5.4 4.7 Creatinine Kinase MB (Mass) 27.30 H 18.50 H Troponin I 49.800 *H 42.200 *H Test 08/25/16 05:45 08/25/16 12:00 White Blood Count 8.5 # Red Blood Count 3.29 #L Hemoglobin 9.8 #L Hematocrit 30.2 #L Mean Corpuscular Volume 91.8 Mean Corpuscular Hemoglobin 29.8 Mean Corpuscular Hemoglobin Concent 32.5 Red Cell Distribution Width 13.9 Platelet Count 192 # Mean Platelet Volume 10.5 H Neutrophils % 74.6 Lymphocytes % 13.1 L Monocytes % 10.8 Eosinophils % 0.6 Basophils % 0.4 Nucleated Red Blood Cells % 0.0 Neutrophils # 6.4 Lymphocytes # 1.1 Monocytes # 0.9 Eosinophils # 0.1 Basophils # 0.0 Nucleated Red Blood Cells # 0.0 Activated Partial Thromboplast Time 80.0 *H 41.2 H Sodium Level 135 Potassium Level 3.4 L Chloride Level 108 Carbon Dioxide Level 21 Anion Gap 9 # Blood Urea Nitrogen 24 H Creatinine 1.00 Glucose Level 91 # Hemoglobin A1c 5.4 Calcium Level 8.2 L Magnesium Level 1.9 Medications Medications Current Medications Ondansetron HCl 4 mg 4 mg Q6H PRN IV NAUSEA AND/OR VOMITING; Start 08/24/16 at 16:30 Ceftriaxone Sodium (Rocephin) 50 ml @ 100 mls/hr Q24H IVPB Last administered on 08/24/16 20:41; Admin Dose 100 MLS/HR; Start 08/24/16 at 21:00 Famotidine 20 mg 20 mg QHS IV Last administered on 08/24/16 20:40; Admin Dose 20 MG; Start 08/24/16 at 21:00 Fluconazole 100 ml @ 100 mls/hr Q24H IVPB Last administered on 08/24/16 21:42 ; Admin Dose 100 MLS/HR; Start 08/24/16 at 20:00 Sodium Chloride (NS) 1,000 ml @ 75 mls/hr [id number] IV Last administered on 10:47; Admin Dose 75 MLS/HR; Start 08/24/16 at 21:00 Carbidopa/Levodopa (Sinemet (25/ 100)) 1 tab TID PO Last administered on 08:14; Admin Dose 1 TAB; Start 08/24/16 at 21:00 Tamsulosin HCl (Flomax) 0.4 mg QPM PO Last administered on 08/24/16 20:41; Admin Dose 0.4 MG; Start 08/24/16 at 21:00 Tramadol HCl (Ultram) 50 mg BID PRN PO PAIN; Start 08/24/16 at 16:30 IV Flush (NS 10 ml) 10 ml PRN PRN IV IV PROTOCOL; Start 08/24/16 at 17:00 Aspirin (Aspirin) 81 mg DAILY PO Last administered on 08/25/16 08:13; Admin Dose 81 MG; Start 08/25/16 at 09:00 Atorvastatin Calcium (Lipitor) 80 mg HS PO Last administered on 08/24/16 20:41 ; Admin Dose 80 MG; Start 08/24/16 at 21:00 CHANTALE SHAH August 25, 2016 13:19
[2016-08-25] MEDS ORDERED: MAGNESIUM SULFATE 1 GM/D5W 100 ML IVPB ONE (13:30)
[2016-08-25] MEDS: HEPARIN 25000 UNITS/250 ML 250 ML IV SCH (15:46)
--- NOTE | 2016-08-25 16:03 | PN ---
Date/Time of Note Date/Time of Note DATE: 08/25/16 TIME: 15:57 Assessment/Plan VTE Prophylaxis VTE Prophylaxis Intervention: SCD's, other (pt is on heparing tt ) Lines/Catheters IV Catheter Type (from Nrsg): PICC Line Central line still needed: Yes (Difficult IV access, on heparin gtt) Urinary Cath still in place: Yes Reason Cath still needed: urinary retention, other (indicate) (strict I/O ) Assessment/Plan Assessment/Plan 1. Acute encephalopathy multifcatorial due to Infectious encephalopathy and NSTEMI 2. acute NSTEMI with troponin in 40s 3. ALLI superimposed on chronic kidney disease with atrophic left kidney on CT.due to Cardiorenal syndrome causing ischemic ATN 4. UTI with Urine Cx growing gram negative rods 5. Recent left shoulder surgery currently on sling. 6. Probable coronary artery disease as patient is on Plavix versus a history of previous stroke. 7. Chronic Parkinson disease, on carbidopa/levodopa, which might indicate an underlying chronic encephalopathy. 8. Hypertension 9. BPH Plan: Continue h eparin gtt for NSTEMI cardiolgoy following, pt will likely require Cardiac cath possible plan on Sunday BP stable IV abx for UTI continue other cardiac meds Protonix for GI prophylaxis downgrade to telemetry floor Subjective 24 Hr Interval Summary Free Text/Dictation troponin 42. no Chest pain, S/p cardiology consult, possible plan for Cath on Sunday Exam/Review of Systems Vital Signs Vitals Vital Signs Date Time Temp Pulse Resp B/P Pulse Ox O2 Delivery O2 Flow Rate FiO2 08/25/16 14:00 70 21 117/74 98 Room Air 08/25/16 12:00 98.6 08/25/16 11:00 2.0 Intake and Output 08/24/16 08/24/16 08/25/16 15:00 23:00 07:00 Intake Total 2300 ml 1458.5 ml 756.5 ml Output Total 820 ml 295 ml Balance 2300 ml 638.5 ml 461.5 ml Exam GENERAL: The patient is alert, alert, but hard of hearing . NECK: JVP of 8 cm of water. CHEST: Upper airway transmitted rhonchorous sounds. HEART: Regular rate and rhythm. Normal S1, S2, I/ systolic murmur. ABDOMEN: Positive bowel sounds, soft. EXTREMITIES: No edema, 1+ pulses bilaterally, it is posterior tibial. Results Result Diagram: 08/25/16 0545 08/25/16 0545 Results 24 hrs Laboratory Tests Test 08/24/16 18:00 08/25/16 00:30 08/25/16 05:45 08/25/16 12:00 Activated Partial Thromboplast Time 107.6 *H 43.7 H 80.0 *H 41.2 H Creatine Kinase 503 H 392 H Creatine Kinase Index 5.4 4.7 Creatinine Kinase MB (Mass) 27.30 H 18.50 H Troponin I 49.800 *H 42.200 *H White Blood Count 8.5 # Red Blood Count 3.29 #L Hemoglobin 9.8 #L Hematocrit 30.2 #L Mean Corpuscular Volume 91.8 Mean Corpuscular Hemoglobin 29.8 Mean Corpuscular Hemoglobin Concent 32.5 Red Cell Distribution Width 13.9 Platelet Count 192 # Mean Platelet Volume 10.5 H Neutrophils % 74.6 Lymphocytes % 13.1 L Monocytes % 10.8 Eosinophils % 0.6 Basophils % 0.4 Nucleated Red Blood Cells % 0.0 Neutrophils # 6.4 Lymphocytes # 1.1 Monocytes # 0.9 Eosinophils # 0.1 Basophils # 0.0 Nucleated Red Blood Cells # 0.0 Sodium Level 135 Potassium Level 3.4 L Chloride Level 108 Carbon Dioxide Level 21 Anion Gap 9 # Blood Urea Nitrogen 24 H Creatinine 1.00 Glucose Level 91 # Hemoglobin A1c 5.4 Calcium Level 8.2 L Magnesium Level 1.9 Test 08/25/16 14:35 Activated Partial Thromboplast Time 37.7 H Medications Medications Current Medications Ondansetron HCl 4 mg 4 mg Q6H PRN IV NAUSEA AND/OR VOMITING; Start 08/24/16 at 16:30 Ceftriaxone Sodium (Rocephin) 50 ml @ 100 mls/hr Q24H IVPB Last administered on 08/24/16 20:41; Admin Dose 100 MLS/HR; Start 08/24/16 at 21:00 Famotidine 20 mg 20 mg QHS IV Last administered on 08/24/16 20:40; Admin Dose 20 MG; Start 08/24/16 at 21:00 Fluconazole 100 ml @ 100 mls/hr Q24H IVPB Last administered on 08/24/16 21:42 ; Admin Dose 100 MLS/HR; Start 08/24/16 at 20:00 Sodium Chloride (NS) 1,000 ml @ 50 mls/hr Q20H IV Last administered on 10:47; Admin Dose 75 MLS/HR; Start 08/24/16 at 21:00 Carbidopa/Levodopa (Sinemet (25/ 100)) 1 tab TID PO Last administered on 13:58; Admin Dose 1 TAB; Start 08/24/16 at 21:00 Tamsulosin HCl (Flomax) 0.4 mg QPM PO Last administered on 08/24/16 20:41; Admin Dose 0.4 MG; Start 08/24/16 at 21:00 Tramadol HCl (Ultram) 50 mg BID PRN PO PAIN; Start 08/24/16 at 16:30 IV Flush (NS 10 ml) 10 ml PRN PRN IV IV PROTOCOL; Start 08/24/16 at 17:00 Aspirin (Aspirin) 81 mg DAILY PO Last administered on 08/25/16 08:13; Admin Dose 81 MG; Start 08/25/16 at 09:00 Atorvastatin Calcium (Lipitor) 80 mg HS PO Last administered on 08/24/16 20:41 ; Admin Dose 80 MG; Start 08/24/16 at 21:00 Clopidogrel Bisulfate (plaVIX) 75 mg DAILY PO ; Start 08/26/16 at 09:00 BATSHEVA SMITH MD August 25, 2016 16:02
--- NOTE | 2016-08-25 16:41 | RADRPT ---
Vent Rate: 66 bpm RR Interval: 0 msec [place] Interval: 158 msec QRS Duration: 122 msec QT Interval: 402 msec QTC Interval: 421 msec P-R-T [place]: 38 - -72 - 83 degrees Sinus rhythm with premature atrial complexes Left axis deviation Septal infarct , age undetermined Abnormal ECG Electronically Signed By: Errol [place] [id number]
[2016-08-25] MEDS: TAMSULOSIN (SR) 0.4 MG CAP PO SCH (20:47)
[2016-08-25] MEDS: FLUCONAZOLE 200 MG/NS (PMX) 100 ML IVPB SCH (20:48)
[2016-08-25] MEDS: ATORVASTATIN 80 MG TAB PO SCH (20:48)
[2016-08-25] MEDS: FAMOTIDINE 20 MG INJ IV SCH (20:48)
[2016-08-25] MEDS: CEFTRIAXONE 1 GM/50 ML (PMX) 50 ML IVPB SCH (20:53)
[2016-08-26] VITALS (13 sets, daily range): BP systolic 99–140; BP diastolic 60–81; PULSE 62–93; RESP 15–24
[2016-08-26 04:01] LABS: ADD SCAN DIFF NO
[2016-08-26 04:13] LABS: BASOPHILS % 0.3 % (0.0-2.0); EOSINOPHILS # 0.1 10^3/ul (0.0-0.5); EOSINOPHILS % 1.6 % (0.0-7.0); HEMATOCRIT 28.4 % (42.0-52.0); HEMOGLOBIN 9.1 g/dl (14.0-18.0); LYMPHOCYTES # 0.9 10^3/ul (0.8-2.9); LYMPHOCYTES % 12.8 % (15.0-51.0); MEAN CORPUSCULAR HEMOGLOBIN 29.5 pg (29.0-33.0); MEAN CORPUSCULAR VOLUME 92.2 fl (82.0-101.0); MEAN PLATELET VOLUME 10.7 fl (7.4-10.4); MONOCYTE # 0.6 10^3/ul (0.3-0.9); NEUTROPHIL # 5.3 10^3/ul (1.6-7.5); NEUTROPHILS % 76.7 % (39.0-77.0); PLATELET COUNT 193 10^3/UL (140-415); RED BLOOD COUNT 3.08 10^6/ul (4.70-6.10); WHITE BLOOD COUNT 6.9 10^3/ul (4.8-10.8)
[2016-08-26 04:29] LABS: CALCIUM 8.2 mg/dl (8.4-10.2); CREATININE 0.9 mg/dl (0.61-1.24); POTASSIUM 3.9 mmol/L (3.5-5.1)
[2016-08-26 04:47] LABS: CK-MB 6.05 ng/ml (0.0-2.4); TROPONIN-I 23.2 ng/ml (0.00-0.12)
[2016-08-26] MEDS: SOD CHLORIDE 0.9% 1,000 ML IV SCH (04:49)
[2016-08-26] MEDS: HEPARIN 25000 UNITS/250 ML 250 ML IV SCH ×2 (04:56→12:59)
[2016-08-26] MEDS: CLOPIDOGREL 75 MG TAB PO SCH (08:51)
[2016-08-26] MEDS: ASPIRIN 81 MG TAB PO SCH (08:51)
[2016-08-26] MEDS: CARBIDOPA/LEVODOPA (25/100) TAB PO SCH ×3 (11:19→20:57)
--- NOTE | 2016-08-26 12:56 | CONS ---
Date/Time of Note Date/Time of Note DATE: 08/26/16 TIME: 12:53 Assessment/Plan Assessment/Plan Additional Assessment/Plan 1. Acute myocardial infarction. Currently with ongoing renal failure and denies chest pain. Hemodynamically stable.-currently downtrending cardiac enzymes- LHC planned. 2. Abnormal electrocardiogram with anterior anteroseptal Q's indicative of the patient's infarction that has probably just subacutely occurred. 3. History of percutaneous transluminal coronary angioplasty and stent placement in 2011 with possible recent stoppage of Plavix for surgery per chart biopsy. 4. Status post recent left upper extremity surgery in the last 1 week - in sling now. 5. Renal failure-improve- better now. 6. Encephalopathy. 7. Hyponatremia. 8. Urinary tract infection - on anti-bx. 9. Leukocytosis. 10. Anemia- No bleeding. 11.Cardiomyopathy-decreased LVEF 25-30 by echo by s admit Consultation Date/Type/Reason Admit Date/Time August 24, 2016 at 16:07 Initial Consult Date Type of Consultation: Cardiology Referring Provider: YAMILKA WOODRUFF 24 HR Interval Summary Free Text/Dictation No acute change - recovering well - [facility] planned if Cr Ok. ROS: No fever, no chills, no nausea, no vomiting, no diarrhea/constipation No recent weight changes No chest pain, no PND, no orthopnea No dizziness, blurred vision No thirst, no heat or cold intolerance Exam/Review of Systems Vital Signs Vitals Vital Signs Date Time Temp Pulse Resp B/P Pulse Ox O2 Delivery O2 Flow Rate FiO2 08/26/16 12:00 74 08/26/16 08:01 98.2 17 140/63 95 08/26/16 01:00 Room Air 08/25/16 11:00 2.0 Intake and Output 08/25/16 08/25/16 08/26/16 15:00 23:00 07:00 Intake Total 655 ml 562.5 ml 320 ml Output Total 280 ml 225 ml 350 ml Balance 375 ml 337.5 ml -30 ml Exam General: WN/WD/NAD, AOx 3 HEENT: Unicetric/atraumatic/EOMI (follow commands) NECK: JVD elevated, no thyromegaly Lymph: no lymphadenopathy HEART: regular with no S3, II/ systolic murmur at apex LUNGS: Coarse sounds ABD: soft, NT, ND, +BS : Intact Neuro: non focal SKIN: chronic changes EXT: trace edema, L shoulder post op Results Result Diagram: 08/26/16 0353 08/26/16 0353 Results 24 hrs Laboratory Tests Test 08/25/16 14:35 08/25/16 21:54 08/26/16 03:53 08/26/16 11:24 Activated Partial Thromboplast Time 37.7 H 48.7 H 63.0 H 59.8 H White Blood Count 6.9 Red Blood Count 3.08 L Hemoglobin 9.1 L Hematocrit 28.4 L Mean Corpuscular Volume 92.2 Mean Corpuscular Hemoglobin 29.5 Mean Corpuscular Hemoglobin Concent 32.0 Red Cell Distribution Width 14.0 Platelet Count 193 Mean Platelet Volume 10.7 H Neutrophils % 76.7 Lymphocytes % 12.8 L Monocytes % 8.0 Eosinophils % 1.6 Basophils % 0.3 Nucleated Red Blood Cells % 0.0 Neutrophils # 5.3 Lymphocytes # 0.9 Monocytes # 0.6 Eosinophils # 0.1 Basophils # 0.0 Nucleated Red Blood Cells # 0.0 Sodium Level 135 Potassium Level 3.9 Chloride Level 110 Carbon Dioxide Level 21 Anion Gap 8 Blood Urea Nitrogen 30 H Creatinine 0.90 Glucose Level 104 Calcium Level 8.2 L Creatine Kinase 171 # Creatine Kinase Index 3.5 Creatinine Kinase MB (Mass) 6.05 H Troponin I 23.200 *H Medications Medications Current Medications Ondansetron HCl (Zofran Inj) 4 mg Q6H PRN IV NAUSEA AND/OR VOMITING; Start 08/24 at 16:30 Famotidine 20 mg 20 mg QHS IV Last administered on 08/25/16 20:48; Admin Dose 20 MG; Start 08/24/16 at 21:00 Fluconazole 100 ml @ 100 mls/hr Q24H IVPB Last administered on 08/25/16 20:48 ; Admin Dose 100 MLS/HR; Start 08/24/16 at 20:00 Sodium Chloride (NS) 1,000 ml @ 50 mls/hr Q20H IV Last administered on 10:47; Admin Dose 75 MLS/HR; Start 08/24/16 at 21:00 Carbidopa/Levodopa (Sinemet (25/ 100)) 1 tab TID PO Last administered on 11:19; Admin Dose 1 TAB; Start 08/24/16 at 21:00 Tamsulosin HCl (Flomax) 0.4 mg QPM PO Last administered on 08/25/16 20:47; Admin Dose 0.4 MG; Start 08/24/16 at 21:00 Tramadol HCl (Ultram) 50 mg BID PRN PO PAIN; Start 08/24/16 at 16:30 IV Flush (NS 10 ml) 10 ml PRN PRN IV IV PROTOCOL; Start 08/24/16 at 17:00 Aspirin (Aspirin) 81 mg DAILY PO Last administered on 08/26/16 08:51; Admin Dose 81 MG; Start 08/25/16 at 09:00 Atorvastatin Calcium (Lipitor) 80 mg HS PO Last administered on 08/25/16 20:48 ; Admin Dose 80 MG; Start 08/24/16 at 21:00 Clopidogrel Bisulfate 75 mg 75 mg DAILY PO Last administered on 08/26/16 08:51 ; Admin Dose 75 MG; Start 08/26/16 at 09:00 Piperacillin Sod/ Tazobactam Sod (Zosyn 3.375gm/ 100 ml (Pmx)) 100 ml @ 200 mls /hr Q6 IVPB ; Start 08/26/16 at 18:00 CYNTHIA GAGE MD August 26, 2016 12:56
--- NOTE | 2016-08-26 15:16 | PN ---
Date/Time of Note Date/Time of Note DATE: 08/26/16 TIME: 15:14 Assessment/Plan VTE Prophylaxis VTE Prophylaxis Intervention: heparin Lines/Catheters IV Catheter Type (from Nrsg): PICC Line Central line still needed: Yes (Iv access ,difficult peripheral access ) Urinary Cath still in place: Yes Reason Cath still needed: other (indicate) (strict I/o ) Assessment/Plan Assessment/Plan 1. Acute encephalopathy multifcatorial due to Infectious encephalopathy and NSTEMI 2. acute NSTEMI with troponin in 40s 3. ALLI superimposed on chronic kidney disease with atrophic left kidney on CT.due to Cardiorenal syndrome causing ischemic ATN 4. UTI with Urine Cx growing gram negative rods 5. Recent left shoulder surgery currently on sling. 6. Probable coronary artery disease as patient is on Plavix versus a history of previous stroke. 7. Chronic Parkinson disease, on carbidopa/levodopa, which might indicate an underlying chronic encephalopathy. 8. Hypertension 9. BPH Plan: Continue h eparin gtt for NSTEMI cardiolgoy following, pt will likely require Cardiac cath possible plan on Sunday BP stable IV abx for UTI continue other cardiac meds Protonix for GI prophylaxis Subjective 24 Hr Interval Summary Free Text/Dictation transferred to tele, no c hest pain, plan for LHC on Sunday Exam/Review of Systems Vital Signs Vitals Vital Signs Date Time Temp Pulse Resp B/P Pulse Ox O2 Delivery O2 Flow Rate FiO2 08/26/16 12:00 74 08/26/16 12:00 98.1 16 106/61 94 08/26/16 01:00 Room Air 08/25/16 11:00 2.0 Intake and Output 08/25/16 08/25/16 08/26/16 15:00 23:00 07:00 Intake Total 655 ml 562.5 ml 320 ml Output Total 280 ml 225 ml 350 ml Balance 375 ml 337.5 ml -30 ml Exam GENERAL: The patient is alert, alert, but hard of hearing . NECK: JVP of 8 cm of water. CHEST: Upper airway transmitted rhonchorous sounds. HEART: Regular rate and rhythm. Normal S1, S2, I/ systolic murmur. ABDOMEN: Positive bowel sounds, soft. EXTREMITIES: No edema, 1+ pulses bilaterally, it is posterior tibial. Results Result Diagram: 08/26/16 0353 08/26/16 0353 Results 24 hrs Laboratory Tests Test 08/25/16 21:54 08/26/16 03:53 08/26/16 11:24 Activated Partial Thromboplast Time 48.7 H 63.0 H 59.8 H White Blood Count 6.9 Red Blood Count 3.08 L Hemoglobin 9.1 L Hematocrit 28.4 L Mean Corpuscular Volume 92.2 Mean Corpuscular Hemoglobin 29.5 Mean Corpuscular Hemoglobin Concent 32.0 Red Cell Distribution Width 14.0 Platelet Count 193 Mean Platelet Volume 10.7 H Neutrophils % 76.7 Lymphocytes % 12.8 L Monocytes % 8.0 Eosinophils % 1.6 Basophils % 0.3 Nucleated Red Blood Cells % 0.0 Neutrophils # 5.3 Lymphocytes # 0.9 Monocytes # 0.6 Eosinophils # 0.1 Basophils # 0.0 Nucleated Red Blood Cells # 0.0 Sodium Level 135 Potassium Level 3.9 Chloride Level 110 Carbon Dioxide Level 21 Anion Gap 8 Blood Urea Nitrogen 30 H Creatinine 0.90 Glucose Level 104 Calcium Level 8.2 L Creatine Kinase 171 # Creatine Kinase Index 3.5 Creatinine Kinase MB (Mass) 6.05 H Troponin I 23.200 *H Medications Medications Current Medications Ondansetron HCl (Zofran Inj) 4 mg Q6H PRN IV NAUSEA AND/OR VOMITING; Start 08/24 at 16:30 Famotidine 20 mg 20 mg QHS IV Last administered on 08/25/16 20:48; Admin Dose 20 MG; Start 08/24/16 at 21:00 Fluconazole 100 ml @ 100 mls/hr Q24H IVPB Last administered on 08/25/16 20:48 ; Admin Dose 100 MLS/HR; Start 08/24/16 at 20:00 Sodium Chloride (NS) 1,000 ml @ 50 mls/hr Q20H IV Last administered on 10:47; Admin Dose 75 MLS/HR; Start 08/24/16 at 21:00 Carbidopa/Levodopa (Sinemet (25/ 100)) 1 tab TID PO Last administered on 12:56; Admin Dose 1 TAB; Start 08/24/16 at 21:00 Tamsulosin HCl (Flomax) 0.4 mg QPM PO Last administered on 08/25/16 20:47; Admin Dose 0.4 MG; Start 08/24/16 at 21:00 Tramadol HCl (Ultram) 50 mg BID PRN PO PAIN; Start 08/24/16 at 16:30 IV Flush (NS 10 ml) 10 ml PRN PRN IV IV PROTOCOL; Start 08/24/16 at 17:00 Aspirin (Aspirin) 81 mg DAILY PO Last administered on 08/26/16 08:51; Admin Dose 81 MG; Start 08/25/16 at 09:00 Atorvastatin Calcium (Lipitor) 80 mg HS PO Last administered on 08/25/16 20:48 ; Admin Dose 80 MG; Start 08/24/16 at 21:00 Clopidogrel Bisulfate 75 mg 75 mg DAILY PO Last administered on 08/26/16 08:51 ; Admin Dose 75 MG; Start 08/26/16 at 09:00 Piperacillin Sod/ Tazobactam Sod (Zosyn 3.375gm/ 100 ml (Pmx)) 100 ml @ 200 mls /hr Q6 IVPB ; Start 08/26/16 at 18:00 BATSHEVA SMITH MD August 26, 2016 15:16
[2016-08-26] MEDS: PIPER-TAZO 3.375 GM IV (PMX) 100 ML IVPB SCH ×2 (17:51→23:59)
[2016-08-26] MEDS: FAMOTIDINE 20 MG INJ IV SCH (20:57)
[2016-08-26] MEDS: ATORVASTATIN 80 MG TAB PO SCH (20:57)
[2016-08-26] MEDS: TAMSULOSIN (SR) 0.4 MG CAP PO SCH (20:57)
[2016-08-27] VITALS (13 sets, daily range): BP systolic 102–120; BP diastolic 60–71; PULSE 61–73; RESP 12–20
[2016-08-27] MEDS: SOD CHLORIDE 0.9% 1,000 ML IV SCH ×2 (00:49→20:49)
[2016-08-27] MEDS: PIPER-TAZO 3.375 GM IV (PMX) 100 ML IVPB SCH ×4 (05:59→23:56)
[2016-08-27 06:13] LABS: ADD SCAN DIFF NO
[2016-08-27 06:16] LABS: BASOPHILS % 0.4 % (0.0-2.0); EOSINOPHILS # 0.2 10^3/ul (0.0-0.5); HEMATOCRIT 29.4 % (42.0-52.0); HEMOGLOBIN 9.3 g/dl (14.0-18.0); LYMPHOCYTES # 0.9 10^3/ul (0.8-2.9); LYMPHOCYTES % 18.3 % (15.0-51.0); MEAN CORPUSCULAR HEMOGLOBIN 29.6 pg (29.0-33.0); MEAN CORPUSCULAR HGB CONC 31.6 g/dl (32.0-37.0); MEAN CORPUSCULAR VOLUME 93.6 fl (82.0-101.0); MEAN PLATELET VOLUME 10.7 fl (7.4-10.4); MONOCYTE # 0.5 10^3/ul (0.3-0.9); MONOCYTES % 9.9 % (0.0-11.0); NEUTROPHIL # 3.5 10^3/ul (1.6-7.5); PLATELET COUNT 192 10^3/UL (140-415); RED BLOOD COUNT 3.14 10^6/ul (4.70-6.10); RED CELL DISTRIBUTION WIDTH 14.2 % (11.5-14.5); WHITE BLOOD COUNT 5.1 10^3/ul (4.8-10.8)
[2016-08-27 06:37] LABS: CALCIUM 8.3 mg/dl (8.4-10.2); CREATININE 0.88 mg/dl (0.61-1.24); POTASSIUM 3.8 mmol/L (3.5-5.1)
[2016-08-27] MEDS: HEPARIN 1000 UNITS/ML 10 ML INJ IV PRN (06:48)
[2016-08-27] MEDS: HEPARIN 25000 UNITS/250 ML 250 ML IV SCH ×3 (06:55→14:09)
[2016-08-27] MEDS: CARBIDOPA/LEVODOPA (25/100) TAB PO SCH ×3 (08:51→21:27)
[2016-08-27] MEDS: ASPIRIN 81 MG TAB PO SCH (08:51)
[2016-08-27] MEDS: CLOPIDOGREL 75 MG TAB PO SCH (08:51)
--- NOTE | 2016-08-27 12:17 | CONS ---
Date/Time of Note Date/Time of Note DATE: 08/27/16 TIME: 12:14 Assessment/Plan Assessment/Plan Additional Assessment/Plan 1. Acute myocardial infarction. Currently with ongoing renal failure and denies chest pain. Hemodynamically stable.-currently downtrending cardiac enzymes- [facility] planned - SCHEDULED FOR TOMORROW, HOLD HEPARIN GTT. 2. Abnormal electrocardiogram with anterior anteroseptal Q's indicative of the patient's infarction that has probably just subacutely occurred. 3. History of percutaneous transluminal coronary angioplasty and stent placement in 2011 with possible recent stoppage of Plavix for surgery per chart biopsy. 4. Status post recent left upper extremity surgery in the last 1 week - in sling now. 5. Renal failure-improve- better now. CON"T TO FOLLOW. 6. Encephalopathy. 7. Hyponatremia. 8. Urinary tract infection - on anti-bx. 9. Leukocytosis. 10. Anemia- No bleeding. 11.Cardiomyopathy-decreased LVEF 25-30 by echo by ths admit Consultation Date/Type/Reason Admit Date/Time August 24, 2016 at 16:07 Type of Consultation: Cardiology Referring Provider: YAMILKA WOODRUFF 24 HR Interval Summary Free Text/Dictation NO acute change - BP stable - good urine output. ROS: No fever, no chills, no nausea, no vomiting, no diarrhea/constipation No recent weight changes No chest pain, no PND, no orthopnea No dizziness, blurred vision No thirst, no heat or cold intolerance Exam/Review of Systems Vital Signs Vitals Vital Signs Date Time Temp Pulse Resp B/P Pulse Ox O2 Delivery O2 Flow Rate FiO2 08/27/16 12:01 98.3 67 12 114/64 96 08/26/16 01:00 Room Air 08/25/16 11:00 2.0 Intake and Output 08/26/16 08/26/16 08/27/16 15:00 23:00 07:00 Intake Total 500 ml 300 ml Output Total 350 ml 1100 ml Balance 150 ml -800 ml Exam General: WN/WD/NAD, AOx 3 HEENT: Unicetric/atraumatic/EOMI (follows commands) NECK: JVD elevated, no thyromegaly Lymph: no lymphadenopathy HEART: regular with no S3, II/ systolic murmur at apex LUNGS: Coarse sounds ABD: soft, NT, ND, +BS : Intact Neuro: non focal SKIN: chronic changes EXT: trace edema Results Result Diagram: 08/27/16 0550 08/27/16 0550 Results 24 hrs Laboratory Tests Test 08/27/16 05:50 White Blood Count 5.1 # Red Blood Count 3.14 L Hemoglobin 9.3 L Hematocrit 29.4 L Mean Corpuscular Volume 93.6 Mean Corpuscular Hemoglobin 29.6 Mean Corpuscular Hemoglobin Concent 31.6 L Red Cell Distribution Width 14.2 Platelet Count 192 Mean Platelet Volume 10.7 H Neutrophils % 68.0 Lymphocytes % 18.3 Monocytes % 9.9 Eosinophils % 3.0 Basophils % 0.4 Nucleated Red Blood Cells % 0.0 Neutrophils # 3.5 Lymphocytes # 0.9 Monocytes # 0.5 Eosinophils # 0.2 Basophils # 0.0 Nucleated Red Blood Cells # 0.0 Activated Partial Thromboplast Time 35.4 H Sodium Level 137 Potassium Level 3.8 Chloride Level 113 H Carbon Dioxide Level 22 Anion Gap 6 L Blood Urea Nitrogen 20 Creatinine 0.88 Glucose Level 104 Calcium Level 8.3 L Medications Medications Current Medications Ondansetron HCl (Zofran Inj) 4 mg Q6H PRN IV NAUSEA AND/OR VOMITING; Start 08/24 at 16:30 Famotidine 20 mg 20 mg QHS IV Last administered on 08/26/16 20:57; Admin Dose 20 MG; Start 08/24/16 at 21:00 Sodium Chloride (NS) 1,000 ml @ 50 mls/hr Q20H IV Last administered on 10:47; Admin Dose 75 MLS/HR; Start 08/24/16 at 21:00 Carbidopa/Levodopa (Sinemet (25/ 100)) 1 tab TID PO Last administered on 08:51; Admin Dose 1 TAB; Start 08/24/16 at 21:00 Tamsulosin HCl (Flomax) 0.4 mg QPM PO Last administered on 08/26/16 20:57; Admin Dose 0.4 MG; Start 08/24/16 at 21:00 Tramadol HCl (Ultram) 50 mg BID PRN PO PAIN; Start 08/24/16 at 16:30 IV Flush (NS 10 ml) 10 ml PRN PRN IV IV PROTOCOL; Start 08/24/16 at 17:00 Aspirin (Aspirin) 81 mg DAILY PO Last administered on 08/27/16 08:51; Admin Dose 81 MG; Start 08/25/16 at 09:00 Atorvastatin Calcium (Lipitor) 80 mg HS PO Last administered on 08/26/16 20:57 ; Admin Dose 80 MG; Start 08/24/16 at 21:00 Clopidogrel Bisulfate 75 mg 75 mg DAILY PO Last administered on 08/27/16 08:51 ; Admin Dose 75 MG; Start 08/26/16 at 09:00 Piperacillin Sod/ Tazobactam Sod (Zosyn 3.375gm/ 100 ml (Pmx)) 100 ml @ 200 mls /hr Q6 IVPB Last administered on 08/27/16 05:59; Admin Dose 200 MLS/HR; Start 08/26/16 at 18:00 CYNTHIA GAGE MD August 27, 2016 12:17
--- NOTE | 2016-08-27 14:09 | PN ---
Date/Time of Note Date/Time of Note DATE: 08/27/16 TIME: 14:05 Assessment/Plan VTE Prophylaxis VTE Prophylaxis Intervention: heparin (on heparin gtt for NSTEMI ) Lines/Catheters IV Catheter Type (from Nrsg): PICC Line Central line still needed: Yes (difficult peripheral access ) Urinary Cath still in place: Yes Reason Cath still needed: other (indicate) (strict I/O ) Assessment/Plan Assessment/Plan 1. Acute encephalopathy multifcatorial due to Infectious encephalopathy from ESBL E Coli UTI and NSTEMI 2. acute NSTEMI with troponin in 40s- s/p Cardiology consult, plan for [facility] tomorrow 3. ALLI superimposed on chronic kidney disease with atrophic left kidney on CT.due to Cardiorenal syndrome causing ischemic ATN 4. UTI with Urine Cx growing ESBL E Coli 5. Recent left shoulder surgery currently on sling. 6. Probable coronary artery disease as patient is on Plavix versus a history of previous stroke. 7. Chronic Parkinson disease, on carbidopa/levodopa, which might indicate an underlying chronic encephalopathy. 8. Hypertension 9. BPH Plan: Continue heparin gtt for NSTEMI cardiolgoy following, pt will likely require Cardiac cath possible plan on Sunday- hold heparin gtt tonight BP stable IV zosyn for ESBL Ecoli continue other cardiac meds Protonix for GI prophylaxis Subjective 24 Hr Interval Summary Free Text/Dictation no chest pain, scheduled for [facility] tomorrow Exam/Review of Systems Vital Signs Vitals Vital Signs Date Time Temp Pulse Resp B/P Pulse Ox O2 Delivery O2 Flow Rate FiO2 08/27/16 12:14 63 08/27/16 12:01 98.3 12 114/64 96 08/26/16 01:00 Room Air 08/25/16 11:00 2.0 Intake and Output 08/26/16 08/26/16 08/27/16 15:00 23:00 07:00 Intake Total 500 ml 300 ml Output Total 350 ml 1100 ml Balance 150 ml -800 ml Exam GENERAL: The patient is alert, alert, but hard of hearing . NECK: JVP of 8 cm of water. CHEST: Upper airway transmitted rhonchorous sounds. HEART: Regular rate and rhythm. Normal S1, S2, I/ systolic murmur. ABDOMEN: Positive bowel sounds, soft. EXTREMITIES: No edema, 1+ pulses bilaterally, it is posterior tibial. Results Result Diagram: 08/27/16 0550 08/27/16 0550 Results 24 hrs Laboratory Tests Test 08/27/16 05:50 08/27/16 12:30 White Blood Count 5.1 # Red Blood Count 3.14 L Hemoglobin 9.3 L Hematocrit 29.4 L Mean Corpuscular Volume 93.6 Mean Corpuscular Hemoglobin 29.6 Mean Corpuscular Hemoglobin Concent 31.6 L Red Cell Distribution Width 14.2 Platelet Count 192 Mean Platelet Volume 10.7 H Neutrophils % 68.0 Lymphocytes % 18.3 Monocytes % 9.9 Eosinophils % 3.0 Basophils % 0.4 Nucleated Red Blood Cells % 0.0 Neutrophils # 3.5 Lymphocytes # 0.9 Monocytes # 0.5 Eosinophils # 0.2 Basophils # 0.0 Nucleated Red Blood Cells # 0.0 Activated Partial Thromboplast Time 35.4 H 84.7 *H Sodium Level 137 Potassium Level 3.8 Chloride Level 113 H Carbon Dioxide Level 22 Anion Gap 6 L Blood Urea Nitrogen 20 Creatinine 0.88 Glucose Level 104 Calcium Level 8.3 L Medications Medications Current Medications Ondansetron HCl (Zofran Inj) 4 mg Q6H PRN IV NAUSEA AND/OR VOMITING; Start 08/24 at 16:30 Famotidine 20 mg 20 mg QHS IV Last administered on 08/26/16 20:57; Admin Dose 20 MG; Start 08/24/16 at 21:00 Sodium Chloride (NS) 1,000 ml @ 50 mls/hr Q20H IV Last administered on 10:47; Admin Dose 75 MLS/HR; Start 08/24/16 at 21:00 Carbidopa/Levodopa (Sinemet (25/ 100)) 1 tab TID PO Last administered on 12:23; Admin Dose 1 TAB; Start 08/24/16 at 21:00 Tamsulosin HCl (Flomax) 0.4 mg QPM PO Last administered on 08/26/16 20:57; Admin Dose 0.4 MG; Start 08/24/16 at 21:00 Tramadol HCl (Ultram) 50 mg BID PRN PO PAIN; Start 08/24/16 at 16:30 IV Flush (NS 10 ml) 10 ml PRN PRN IV IV PROTOCOL; Start 08/24/16 at 17:00 Aspirin (Aspirin) 81 mg DAILY PO Last administered on 08/27/16 08:51; Admin Dose 81 MG; Start 08/25/16 at 09:00 Atorvastatin Calcium (Lipitor) 80 mg HS PO Last administered on 08/26/16 20:57 ; Admin Dose 80 MG; Start 08/24/16 at 21:00 Clopidogrel Bisulfate 75 mg 75 mg DAILY PO Last administered on 08/27/16 08:51 ; Admin Dose 75 MG; Start 08/26/16 at 09:00 Piperacillin Sod/ Tazobactam Sod (Zosyn 3.375gm/ 100 ml (Pmx)) 100 ml @ 200 mls /hr Q6 IVPB Last administered on 08/27/16 12:23; Admin Dose 200 MLS/HR; Start 08/26/16 at 18:00 BATSHEVA SMITH MD August 27, 2016 14:09
[2016-08-27] MEDS ORDERED: MAGNESIUM CITRATE 300 ML BTL PO ONE (20:00)
[2016-08-27] MEDS: ATORVASTATIN 80 MG TAB PO SCH (21:27)
[2016-08-27] MEDS: FAMOTIDINE 20 MG INJ IV SCH (21:27)
[2016-08-27] MEDS: TAMSULOSIN (SR) 0.4 MG CAP PO SCH (21:27)
[2016-08-28] VITALS (28 sets, daily range): BP systolic 114–176; BP diastolic 71–160; PULSE 58–99; RESP 11–27
[2016-08-28] MEDS: PIPER-TAZO 3.375 GM IV (PMX) 100 ML IVPB SCH ×2 (05:12→12:00)
[2016-08-28 06:20] LABS: ADD SCAN DIFF NO
[2016-08-28 06:29] LABS: BASOPHILS % 0.4 % (0.0-2.0); EOSINOPHILS # 0.2 10^3/ul (0.0-0.5); EOSINOPHILS % 3.9 % (0.0-7.0); HEMATOCRIT 28.2 % (42.0-52.0); HEMOGLOBIN 8.8 g/dl (14.0-18.0); LYMPHOCYTES # 0.9 10^3/ul (0.8-2.9); LYMPHOCYTES % 16.4 % (15.0-51.0); MEAN CORPUSCULAR HEMOGLOBIN 29.1 pg (29.0-33.0); MEAN CORPUSCULAR HGB CONC 31.2 g/dl (32.0-37.0); MEAN CORPUSCULAR VOLUME 93.4 fl (82.0-101.0); MEAN PLATELET VOLUME 10.9 fl (7.4-10.4); MONOCYTE # 0.4 10^3/ul (0.3-0.9); MONOCYTES % 8.1 % (0.0-11.0); NEUTROPHIL # 3.7 10^3/ul (1.6-7.5); NEUTROPHILS % 70.6 % (39.0-77.0); PLATELET COUNT 207 10^3/UL (140-415); RED BLOOD COUNT 3.02 10^6/ul (4.70-6.10); RED CELL DISTRIBUTION WIDTH 14.1 % (11.5-14.5); WHITE BLOOD COUNT 5.2 10^3/ul (4.8-10.8)
[2016-08-28 06:44] LABS: POTASSIUM 3.5 mmol/L (3.5-5.1)
[2016-08-28 06:47] LABS: CALCIUM 7.8 mg/dl (8.4-10.2); CREATININE 0.88 mg/dl (0.61-1.24)
[2016-08-28 06:58] LABS: INR 1.2; PROTIME 15.3 Sec (12.2-14.2); PT RATIO 1.2
[2016-08-28 06:59] LABS: PARTIAL THROMBOPLASTIN TIME 36.8 Sec (25.0-35.0)
[2016-08-28] MEDS: CARBIDOPA/LEVODOPA (25/100) TAB PO SCH ×4 (08:54→20:50)
[2016-08-28] MEDS: ASPIRIN 81 MG TAB PO SCH ×2 (08:54→09:21)
[2016-08-28] MEDS: CLOPIDOGREL 75 MG TAB PO SCH ×2 (08:54→09:21)
[2016-08-28] MEDS ORDERED: IODIXANOL LOCM 100 ML BTL ONE ×3 (12:30→13:45)
[2016-08-28] MEDS ORDERED: NITROGLYCERIN (IC) 100 MCG/ML INJ ONE ×2 (12:30→13:54)
[2016-08-28] MEDS ORDERED: HEPARIN 1000 UNITS/ML 10 ML INJ ONE (12:30)
[2016-08-28] MEDS ORDERED: LIDOCAINE 1% (MDV) 20 ML INJ ONE (12:30)
[2016-08-28] MEDS ORDERED: VERAPAMIL 5 MG INJ ONE (12:30)
[2016-08-28] MEDS ORDERED: FENTAnyl 50 MCG/ML VIAL ONE (12:46)
[2016-08-28] MEDS ORDERED: MIDAZOLAM 1 MG/ML 2 ML INJ ONE (12:46)
[2016-08-28] MEDS ORDERED: IOHEXOL 350MG/ML 50 ML BTL ONE (13:07)
[2016-08-28] MEDS ORDERED: BIVALIRUDIN 250MG /NS 50 ML 50 ML IVPB ONE (13:19)
[2016-08-28] MEDS ORDERED: ASPIRIN 325 MG TAB ONE (14:02)
[2016-08-28] MEDS ORDERED: CLOPIDOGREL 300 MG TAB ONE (14:02)
[2016-08-28] MEDS ORDERED: SOD CHLORIDE 0.9% 1,000 ML IV SCH (14:18)
[2016-08-28] MEDS ORDERED: HEPARIN 1000 UNITS/ML 10 ML INJ IV ONE (14:30)
[2016-08-28] MEDS ORDERED: ZOLPIDEM 5 MG TAB PO PRN (14:30)
[2016-08-28] MEDS ORDERED: OXYCODONE/ACETAMINOPHEN (5/325) TAB PO PRN (14:30)
[2016-08-28] MEDS ORDERED: morphine 2 MG INJ IV PRN (14:30)
--- NOTE | 2016-08-28 14:30 | CONS ---
Date/Time of Note Date/Time of Note DATE: 08/28/16 TIME: 14:26 Assessment/Plan Assessment/Plan Chief Complaint/Hosp Course IMPRESSION: 1. Acute myocardial infarction. Currently with ongoing renal failure and denies chest pain. Hemodynamically stable.-currently downtrending cardiac enzymes. Now s/p PTCA/stent x 2 to 100% occluded LAD prox. Has 90% diffuse LCX which can be staged at a later date 2. Abnormal electrocardiogram with anterior anteroseptal Q's indicative of the patient's infarction that has probably just subacutely occurred. 3. History of percutaneous transluminal coronary angioplasty and stent placement in 2011 with possible recent stoppage of Plavix for surgery per chart biopsy. 4. Status post recent left upper extremity surgery in the last 1 week. 5. Renal failure-improved 6. Encephalopathy. 7. Hyponatremia. 8. Urinary tract infection. 9. Leukocytosis. 10. Anemia. 11.Cardiomyopathy-decreased LVEF 25-30 by echo by s admit REcc: -Tele -serial ecg's -Continue asa 25 mg and plavix 75 mg daily now s/p ptca/stent x 2 to LAD -Trend cardiac enzymes -Continue statin -start low dose ACEI afterload reduction and BB thereafter as tolerated -Follow volume status closely Problems: Consultation Date/Type/Reason Admit Date/Time August 24, 2016 at 16:07 Initial Consult Date 08/24/2016 Type of Consultation: Cardiology Reason for Consultation Acute GA Referring Provider: YAMILKA WOODRUFF Exam/Review of Systems Vital Signs Vitals Vital Signs Date Time Temp Pulse Resp B/P Pulse Ox O2 Delivery O2 Flow Rate FiO2 08/28/16 12:01 65 08/28/16 11:49 98.3 20 127/71 95 08/26/16 01:00 Room Air 08/25/16 11:00 2.0 Intake and Output 08/27/16 08/27/16 08/28/16 15:00 23:00 07:00 Intake Total 100 ml 900 ml 1500 ml Output Total 900 ml 800 ml Balance 100 ml 0 ml 700 ml Exam Review of Systems: CONSTITUTIONAL: No fevers, chills. PULMONARY: No sob CARDIOVASCULAR: No chest pain/palpitations GASTROINTESTINAL: No nausea/vomiting. GENITOURINARY: No hematuria/dysuria. MUSCULOSKELETAL: No myagias/arthalgias. PSYCHIATRIC: The patient denies depression. NEUROLOGIC: No weakness Constitutional: alert Psych: no complaints Head: normocephalic ENMT: mucosa pink and moist Neck: jvd (9 cm water), supple Respiratory: diminished breath sounds (at bases/B) Cardiovascular: regular rate and rhythm Gastrointestinal: non-tender, soft Musculoskeletal: muscle tone (normal) Extremities: edema (none) Neurological: other (No focal deficits) Results Result Diagram: 08/28/16 0536 08/28/1636 Results 24 hrs Laboratory Tests Test 08/27/16 18:25 08/28/16 00:35 08/28/16 05:36 08/28/16 11:50 Activated Partial Thromboplast Time 66.0 H 37.5 H 36.8 H 31.5 White Blood Count 5.2 Red Blood Count 3.02 L Hemoglobin 8.8 L Hematocrit 28.2 L Mean Corpuscular Volume 93.4 Mean Corpuscular Hemoglobin 29.1 Mean Corpuscular Hemoglobin Concent 31.2 L Red Cell Distribution Width 14.1 Platelet Count 207 Mean Platelet Volume 10.9 H Neutrophils % 70.6 Lymphocytes % 16.4 Monocytes % 8.1 Eosinophils % 3.9 Basophils % 0.4 Nucleated Red Blood Cells % 0.0 Neutrophils # 3.7 Lymphocytes # 0.9 Monocytes # 0.4 Eosinophils # 0.2 Basophils # 0.0 Nucleated Red Blood Cells # 0.0 Prothrombin Time 15.3 H Prothrombin Time Ratio 1.2 INR International Normalized Ratio 1.20 Sodium Level 142 Potassium Level 3.5 Chloride Level 113 H Carbon Dioxide Level 22 Anion Gap 11 Blood Urea Nitrogen 18 Creatinine 0.88 Glucose Level 93 Calcium Level 7.8 L Medications Medications Current Medications Ondansetron HCl (Zofran Inj) 4 mg Q6H PRN IV NAUSEA AND/OR VOMITING; Start 08/24 at 16:30 Famotidine 20 mg 20 mg QHS IV Last administered on 08/27/16 21:27; Admin Dose 20 MG; Start 08/24/16 at 21:00 Sodium Chloride (NS) 1,000 ml @ 50 mls/hr Q20H IV Last administered on 20:49; Admin Dose 50 MLS/HR; Start 08/24/16 at 21:00 Carbidopa/Levodopa (Sinemet (25/ 100)) 1 tab TID PO Last administered on 09:22; Admin Dose 1 TAB; Start 08/24/16 at 21:00 Tamsulosin HCl (Flomax) 0.4 mg QPM PO Last administered on 08/27/16 21:27; Admin Dose 0.4 MG; Start 08/24/16 at 21:00 Tramadol HCl (Ultram) 50 mg BID PRN PO PAIN; Start 08/24/16 at 16:30 IV Flush (NS 10 ml) 10 ml PRN PRN IV IV PROTOCOL; Start 08/24/16 at 17:00 Aspirin (Aspirin) 81 mg DAILY PO Last administered on 08/28/16 09:21; Admin Dose 81 MG; Start 08/25/16 at 09:00 Atorvastatin Calcium (Lipitor) 80 mg HS PO Last administered on 08/27/16 21:27 ; Admin Dose 80 MG; Start 08/24/16 at 21:00 Clopidogrel Bisulfate 75 mg 75 mg DAILY PO Last administered on 08/28/16 09:21 ; Admin Dose 75 MG; Start 08/26/16 at 09:00 Piperacillin Sod/ Tazobactam Sod (Zosyn 3.375gm/ 100 ml (Pmx)) 100 ml @ 200 mls /hr Q6 IVPB Last administered on 08/28/16 05:12; Admin Dose 200 MLS/HR; Start 08/26/16 at 18:00 CHANTALE SHAH August 28, 2016 14:30
[2016-08-28] MEDS: HEPARIN 25000 UNITS/250 ML 250 ML IV SCH ×2 (16:08→23:38)
[2016-08-28 16:21] LABS: ADD SCAN DIFF NO
[2016-08-28 16:23] LABS: BASOPHILS % 0.4 % (0.0-2.0); EOSINOPHILS # 0.2 10^3/ul (0.0-0.5); EOSINOPHILS % 3.9 % (0.0-7.0); HEMATOCRIT 28.6 % (42.0-52.0); HEMOGLOBIN 9.1 g/dl (14.0-18.0); LYMPHOCYTES # 0.8 10^3/ul (0.8-2.9); LYMPHOCYTES % 16.4 % (15.0-51.0); MEAN CORPUSCULAR HEMOGLOBIN 29.4 pg (29.0-33.0); MEAN CORPUSCULAR HGB CONC 31.8 g/dl (32.0-37.0); MEAN CORPUSCULAR VOLUME 92.6 fl (82.0-101.0); MEAN PLATELET VOLUME 10.5 fl (7.4-10.4); MONOCYTE # 0.4 10^3/ul (0.3-0.9); MONOCYTES % 7.2 % (0.0-11.0); NEUTROPHIL # 3.7 10^3/ul (1.6-7.5); NEUTROPHILS % 71.9 % (39.0-77.0); PLATELET COUNT 214 10^3/UL (140-415); RED BLOOD COUNT 3.09 10^6/ul (4.70-6.10); RED CELL DISTRIBUTION WIDTH 13.9 % (11.5-14.5); WHITE BLOOD COUNT 5.1 10^3/ul (4.8-10.8)
[2016-08-28 16:38] LABS: INR 2.05; PROTIME 23.3 Sec (12.2-14.2); PT RATIO 1.8
--- NOTE | 2016-08-28 16:58 | PN ---
Date/Time of Note Date/Time of Note DATE: 08/28/16 TIME: 16:54 Assessment/Plan VTE Prophylaxis VTE Prophylaxis Intervention: heparin, LMWH Lines/Catheters IV Catheter Type (from Nrs): PICC Line Central line still needed: Yes (iv therapy) Urinary Cath still in place: Yes Reason Cath still needed: urinary retention Assessment/Plan Chief Complaint/Hosp Course S- events noted O- vss; SR PE no pallor/jvd s2s2 reg; no m/r/g ctab bs+ nt nd; no r/r/g no edema A/P 1) Ac encephalopathy; stable; monitor 2) NSTEMI; sp pci*2 to LAD; Cx Dz remains. 3) Ischemic CMY. code status? 4) Chr parkinsonism 5) Ftt 6) Recent luw surgery 7) Bph 8) CAD; EF 25% 9) Ho stroke? on plavix 10) Thoracic aorta dilated 4cm. no aneurysm 11) Renal insuff 12) Djd 13) Nephrolithiasis 14) Anemia 15) Atelectasis Problems: Exam/Review of Systems Vital Signs Vitals Vital Signs Date Time Temp Pulse Resp B/P Pulse Ox O2 Delivery O2 Flow Rate FiO2 08/28/16 16:30 76 27 176/160 98 Room Air 08/28/16 15:45 97.5 08/25/16 11:00 2.0 Intake and Output 08/27/16 08/27/16 08/28/16 15:00 23:00 07:00 Intake Total 100 ml 900 ml 1500 ml Output Total 900 ml 800 ml Balance 100 ml 0 ml 700 ml Results Result Diagram: 08/28/16 1555 08/28/16 0536 Results 24 hrs Laboratory Tests Test 08/27/16 18:25 08/28/16 00:35 08/28/16 05:36 08/28/16 11:50 Activated Partial Thromboplast Time 66.0 H 37.5 H 36.8 H 31.5 White Blood Count 5.2 Red Blood Count 3.02 L Hemoglobin 8.8 L Hematocrit 28.2 L Mean Corpuscular Volume 93.4 Mean Corpuscular Hemoglobin 29.1 Mean Corpuscular Hemoglobin Concent 31.2 L Red Cell Distribution Width 14.1 Platelet Count 207 Mean Platelet Volume 10.9 H Neutrophils % 70.6 Lymphocytes % 16.4 Monocytes % 8.1 Eosinophils % 3.9 Basophils % 0.4 Nucleated Red Blood Cells % 0.0 Neutrophils # 3.7 Lymphocytes # 0.9 Monocytes # 0.4 Eosinophils # 0.2 Basophils # 0.0 Nucleated Red Blood Cells # 0.0 Prothrombin Time 15.3 H Prothrombin Time Ratio 1.2 INR International Normalized Ratio 1.20 Sodium Level 142 Potassium Level 3.5 Chloride Level 113 H Carbon Dioxide Level 22 Anion Gap 11 Blood Urea Nitrogen 18 Creatinine 0.88 Glucose Level 93 Calcium Level 7.8 L Test 08/28/16 15:55 White Blood Count 5.1 Red Blood Count 3.09 L Hemoglobin 9.1 L Hematocrit 28.6 L Mean Corpuscular Volume 92.6 Mean Corpuscular Hemoglobin 29.4 Mean Corpuscular Hemoglobin Concent 31.8 L Red Cell Distribution Width 13.9 Platelet Count 214 Mean Platelet Volume 10.5 H Neutrophils % 71.9 Lymphocytes % 16.4 Monocytes % 7.2 Eosinophils % 3.9 Basophils % 0.4 Nucleated Red Blood Cells % 0.0 Neutrophils # 3.7 Lymphocytes # 0.8 Monocytes # 0.4 Eosinophils # 0.2 Basophils # 0.0 Nucleated Red Blood Cells # 0.0 Prothrombin Time Pending Prothrombin Time Ratio 1.8 INR International Normalized Ratio 2.05 Activated Partial Thromboplast Time Pending Medications Medications Current Medications Ondansetron HCl (Zofran Inj) 4 mg Q6H PRN IV NAUSEA AND/OR VOMITING; Start 08/24 at 16:30 Famotidine (Pepcid Iv) 20 mg QHS IV Last administered on 08/27/16 21:27; Admin Dose 20 MG; Start 08/24/16 at 21:00 Carbidopa/Levodopa (Sinemet (25/ 100)) 1 tab TID PO Last administered on 09:22; Admin Dose 1 TAB; Start 08/24/16 at 21:00 Tamsulosin HCl (Flomax) 0.4 mg QPM PO Last administered on 08/27/16 21:27; Admin Dose 0.4 MG; Start 08/24/16 at 21:00 Tramadol HCl (Ultram) 50 mg BID PRN PO PAIN; Start 08/24/16 at 16:30 IV Flush (NS 10 ml) 10 ml PRN PRN IV IV PROTOCOL; Start 08/24/16 at 17:00 Atorvastatin Calcium (Lipitor) 80 mg HS PO Last administered on 08/27/16 21:27 ; Admin Dose 80 MG; Start 08/24/16 at 21:00 Clopidogrel Bisulfate 75 mg 75 mg DAILY PO Last administered on 08/28/16 09:21 ; Admin Dose 75 MG; Start 08/26/16 at 09:00 Piperacillin Sod/ Tazobactam Sod (Zosyn 3.375gm/ 100 ml (Pmx)) 100 ml @ 200 mls /hr Q6 IVPB Last administered on 08/28/16 05:12; Admin Dose 200 MLS/HR; Start 08/26/16 at 18:00 Miscellaneous Information (* Miscellaneous Pharmacy Order) Hold all Metformin ... ONCE XX ; Start 08/28/16 at 14:30; Stop 08/30/16 at 14:29 Oxycodone/ Acetaminophen (Percocet (5/ 325)) 1 tab Q4H PRN PO REPORTED NON- CARDIAC PAIN 4-7; Start 08/28/16 at 14:30 Morphine Sulfate 1 mg 1 mg Q1H PRN IV PAIN NOT RELIEVED BY OTHERS; Start at 14:30 Sodium Chloride (NS) 1,000 ml @ 75 mls/hr [id number] IV Last administered on 15:53; Admin Dose 75 MLS/HR; Start 08/28/16 at 14:18; Stop 08/29/16 at 03:37 Aspirin (Aspirin) 325 mg DAILY PO ; Start 08/29/16 at 09:00 Lisinopril (Zestril) 2.5 mg DAILY PO ; Start 08/29/16 at 09:00 ESCOBAR CARRASCO MD August 28, 2016 16:58
[2016-08-28] MEDS ORDERED: ALBUTEROL 18 GM INHALER INH PRN (17:00)
[2016-08-28 17:14] LABS: PARTIAL THROMBOPLASTIN TIME > 180.0 Sec (25.0-35.0)
[2016-08-28] MEDS: FAMOTIDINE 20 MG INJ IV SCH (20:49)
[2016-08-28] MEDS: TAMSULOSIN (SR) 0.4 MG CAP PO SCH (20:50)
[2016-08-28] MEDS: ATORVASTATIN 80 MG TAB PO SCH (20:50)
[2016-08-28] MEDS: LACTOBACILLUS RHAMNOSUS CAP PO SCH (21:00)
[2016-08-28] MEDS: MEROPENEM 2 GM in SOD CHLORIDE 0.9% 100 ML IVPB SCH (21:34)
--- NOTE | 2016-08-28 22:30 | CARRPT ---
DATE OF PROCEDURE: 08/28/2016 TYPE OF PROCEDURE: 1. Left heart catheterization. 2. Coronary angiography. 3. Measurement of left ventricular end diastolic pressure. 4. Percutaneous transluminal coronary angioplasty with placement of drug-eluting stents x2 to proxi mal LAD. A 2.5 x 28 mm and 2.5 x 8 mm. ATTENDING PHYSICIAN: Chantale Birmingham MD REFERRING PHYSICIAN: Dr. Woodruff from the hospitalist service. TYPE OF ANESTHESIA: Conscious and local. INDICATION: Acute myocardial infarction. BRIEF HISTORY: Mr. Gallegos is an 81-year-old male with history of hypertension, dyslipidemia, coronar y artery disease, status post prior PTCA and stent placement, who was initially found wandering, con fused with some mild shortness of breath, intermittent chest pain. The patient was brought to the e mergency department where he was found to have a markedly peaked troponin of 63 which thereafter campos ntrended. No other significant increase. The patient had no recurrent chest pain at that point. T he patient was medically managed and now been brought to the cardiac [facility] after findings of elev ated troponin and a 2D echo revealing new depressed EF and anterior wall hypokinesis. PROCEDURE: After informed consent was obtained, the patient was brought to the [facility] cardiac catheterization lab where his right radial area was prepped and draped in usual angie rile fashion. Lidocaine 2% was infiltrated into right radial area for adequate local anesthesia. W ith modified Seldinger technique, the radial artery was cannulated. A 6-Liberian arterial sheath was placed. A 6-Liberian JL3.5 catheter was used to cannulate the left main coronary ostium. With contra st injection, multiple views of the left coronary arterial system were obtained. JL3.5 was removed over guidewire and a JR4 was used to cannulate the right coronary arterial ostium. With contrast in jection, multiple views of the right coronary arterial system were obtained. The JR was then used t o cross the aortic valve and left ventricular end-diastolic pressure measured. The JR was pulled ba ck across the aortic valve to assess for significant gradient, which there was not, and removed. Gay bsequently, at this time, given the findings of 100% occlusion in the LAD, we moved directly to inte rventional procedure. The patient had already received 5000 units of heparin, 2.5 verapamil, and 20 0 mcg of nitroglycerin. ACT was checked turning significantly below the level for premium ACT. Sub sequently, the patient was given Angiomax with continuous infusion. An XB LAD 3 guide was used to c annulate the left main coronary ostium. A 0.014 Deblocker 50 guidewire was able to be passed distal to the lesion, 100% occlusion in the LAD. At this time, we performed balloon inflations with a 2.25 x 12 mm balloon up to 14 to 16 atmospheres, returning the flow to the vessel. Subsequently, at this t berry a Pronto low profile catheter was passed through the vessel collecting a small to moderate amoun t of thrombotic material. Subsequently at this time, we did further balloon inflations in the proxi mal portion of the vessel, gave IC nitroglycerin, and subsequently placed a 2.5 x 28 mm drug-eluting stent in the proximal portion of the vessel extending from just 2 mm within the previously placed c lotted stent into a healthy part of the vessel. Subsequently, this was deployed at 14 atmospheres, post-dilated with the stent delivery system up to 16 atmospheres. Stent delivery system was removed and there is questionable stepdown versus dissection. A small 2.5 x 8 mm stent was added just dist al to this with overlap of 1 mm deployed at 14 atmospheres, post-dilated with the stent delivery sys tem up to 16 atmospheres and then further inflation was made at the stent overlap up to 6 atmosphere s with a noncompliant balloon and removed. Followup angiogram was obtained revealing excellent resu lt deployment of both stents, CELESTINO 3 flow throughout the vessel, no signs of complication including perforation or dissection. Subsequently, at this time, the patient's interventional guide and guide wire were removed. The patient's sheath was removed. TR band was applied. There were no noted com plications. FINDINGS: 1. Coronary angiography: Left main 4 mm, no significant stenosis, very short LAD proximally, is a 3 mm vessel, and has 100% occlusion in its proximal portion just at the distal end of the stent. Th e circumflex proximally is a 3 mm vessel and, at the bifurcation with the circ continuation AV groov e and obtuse marginal, there is approximately an 80% stenosis and then in the midportion of the vess el, there is a diffuse 90% stenoses of the obtuse marginal, circ continuation AV groove. There is a second branching obtuse marginal, which has an ostial 30% stenosis. The right coronary artery prox imally is a 3 mm vessel and has a 50% proximal diffuse stenosis, 50% to 60%. Right coronary artery is a dominant vessel and therefore gives off a 2 mm PDA, which is a mid body 20% stenosis, and a pos terolateral branch is a 2 to 2.5 mm vessel and it is free of significant stenoses, but there is a da ughter branch that branches off that less than 2 mm with stenosis up to approximately 90% to 95%. 2. Measurement: Left ventricular end diastolic pressure 23. No significant aortic stenosis by gra dient. TOTAL FLUOROSCOPY TIME: 17.7 minutes. TOTAL CONTRAST: 190 mL. IMPRESSION: 1. Three-vessel obstructive coronary artery disease involving 100% occlusion of the patient's left anterior descending and then small vessel disease of the obtuse marginal and a very small daughter b ranch of the posterolateral branch off the right coronary artery. 2. Elevated left heart filling pressures. 3. No significant aortic stenosis by gradient. 4. Successful percutaneous transluminal coronary angioplasty and stent placement x2 (2.5 x 28 mm an d 2.25 x 8 mm) to proximal left anterior descending for 100% occlusion of the left anterior descendi ng. RECOMMENDATIONS: At this time, given the procedural findings would: 1. Maintain patient on Plavix 75 mg 1 tab p.o. daily times at least 1 year. 2. Aspirin 325 mg 1 tab p.o. daily indefinitely. 3. Maximize medical management. 4. Aggressive risk factor reduction. 5. The patient will be admitted to the ICU for post-intervention observation and continued manageme nt of symptoms with probable procedure upon the circumflex to be staged at a later date. Dictated By: CHANTALE PIÑA/NTS Conf#: [id number] DID#: [id number] CC: YAMILKA WOODRUFF MD;*EndCC*
[2016-08-28 22:50] LABS: INR 1.27; PT RATIO 1.3
[2016-08-28 22:51] LABS: PARTIAL THROMBOPLASTIN TIME 41.1 Sec (25.0-35.0)
[2016-08-28] MEDS: HEPARIN 1000 UNITS/ML 10 ML INJ IV PRN (23:36)
[2016-08-29] VITALS (11 sets, daily range): BP systolic 117–150; BP diastolic 66–90; PULSE 72–116; RESP 16–20
[2016-08-29 06:55] LABS: ADD SCAN DIFF NO
[2016-08-29 06:58] LABS: BASOPHILS % 0.4 % (0.0-2.0); EOSINOPHILS # 0.2 10^3/ul (0.0-0.5); EOSINOPHILS % 2.5 % (0.0-7.0); HEMATOCRIT 28.4 % (42.0-52.0); LYMPHOCYTES # 0.7 10^3/ul (0.8-2.9); LYMPHOCYTES % 9.6 % (15.0-51.0); MEAN CORPUSCULAR HEMOGLOBIN 29.5 pg (29.0-33.0); MEAN CORPUSCULAR HGB CONC 31.7 g/dl (32.0-37.0); MEAN CORPUSCULAR VOLUME 93.1 fl (82.0-101.0); MEAN PLATELET VOLUME 10.9 fl (7.4-10.4); MONOCYTE # 0.5 10^3/ul (0.3-0.9); MONOCYTES % 7.5 % (0.0-11.0); NEUTROPHIL # 5.6 10^3/ul (1.6-7.5); NEUTROPHILS % 79.6 % (39.0-77.0); PLATELET COUNT 230 10^3/UL (140-415); RED BLOOD COUNT 3.05 10^6/ul (4.70-6.10); RED CELL DISTRIBUTION WIDTH 14.1 % (11.5-14.5); WHITE BLOOD COUNT 7.1 10^3/ul (4.8-10.8)
[2016-08-29 07:53] LABS: CALCIUM 8.3 mg/dl (8.4-10.2); CREATININE 0.81 mg/dl (0.61-1.24); POTASSIUM 3.9 mmol/L (3.5-5.1)
[2016-08-29] MEDS: LACTOBACILLUS RHAMNOSUS CAP PO SCH ×2 (08:15→20:38)
[2016-08-29] MEDS: ASPIRIN 325 MG TAB PO SCH (08:15)
[2016-08-29] MEDS: LISINOPRIL 5 MG TAB PO SCH (08:15)
[2016-08-29] MEDS: CLOPIDOGREL 75 MG TAB PO SCH (08:15)
[2016-08-29] MEDS: CARBIDOPA/LEVODOPA (25/100) TAB PO SCH ×3 (08:16→20:38)
[2016-08-29] MEDS: MEROPENEM 2 GM in SOD CHLORIDE 0.9% 100 ML IVPB SCH ×2 (08:25→20:38)
[2016-08-29 09:10] LABS: ALBUMIN 2.6 g/dl (3.3-4.9); BILIRUBIN,INDIRECT 0.4 mg/dl (0-1.1); BILIRUBIN,TOTAL 0.4 mg/dl (0.2-1.3); MAGNESIUM 1.9 mg/dl (1.7-2.5)
--- NOTE | 2016-08-29 09:25 | CONS ---
Date/Time of Note Date/Time of Note DATE: 08/29/16 TIME: 09:23 Assessment/Plan Assessment/Plan Additional Assessment/Plan 1. Acute myocardial infarction. Currently with ongoing renal failure and denies chest pain. Hemodynamically stable.-currently downtrending cardiac enzymes- s/p LAD PCI - tolerated well - on meds now. 2. Abnormal electrocardiogram with anterior anteroseptal Q's indicative of the patient's infarction that has probably just subacutely occurred. 3. History of percutaneous transluminal coronary angioplasty and stent placement in 2011 with possible recent stoppage of Plavix for surgery per chart biopsy. 4. Status post recent left upper extremity surgery in the last 1 week - in sling now. Con't to recover. 5. Renal failure-improve- better now. CON"T TO FOLLOW. 6. Encephalopathy- more alert now. 7. Hyponatremia. 8. Urinary tract infection - on anti-bx. 9. Leukocytosis. 10. Anemia- No bleeding. 11.Cardiomyopathy-decreased LVEF 25-30 by echo by s admit Consultation Date/Type/Reason Admit Date/Time August 24, 2016 at 16:07 Type of Consultation: Cardiology Referring Provider: YAMILKA WOODRUFF 24 HR Interval Summary Free Text/Dictation NO acute events - s/p PCI of LAD - tolerated procedure well. ROS: No fever, no chills, no nausea, no vomiting, no diarrhea/constipation No recent weight changes No chest pain, no PND, no orthopnea No dizziness, blurred vision No thirst, no heat or cold intolerance Exam/Review of Systems Vital Signs Vitals Vital Signs Date Time Temp Pulse Resp B/P Pulse Ox O2 Delivery O2 Flow Rate FiO2 08/29/16 07:23 98.1 74 18 137/90 98 08/28/16 18:00 Room Air 08/25/16 11:00 2.0 Intake and Output 08/28/16 08/28/16 08/29/16 15:00 23:00 07:00 Intake Total 481 ml 356 ml Output Total 600 ml 1200 ml Balance -119 ml -844 ml Exam General: WN/WD/NAD, AOx 2-3 HEENT: Unicetric/atraumatic/EOMI (follows commands) NECK: JVD elevated, no thyromegaly Lymph: no lymphadenopathy HEART: regular with no S3, II/ systolic murmur at apex LUNGS: Coarse sounds ABD: soft, NT, ND, +BS : Intact Neuro: non focal SKIN: chronic changes EXT: trace edema, sling Results Result Diagram: 08/29/16 0606 08/29/16 0606 Results 24 hrs Laboratory Tests Test 08/28/16 11:50 08/28/16 15:55 08/28/16 22:10 08/29/16 06:06 Activated Partial Thromboplast Time 31.5 > 180.0 *H 41.1 H 45.3 H White Blood Count 5.1 7.1 # Red Blood Count 3.09 L 3.05 L Hemoglobin 9.1 L 9.0 L Hematocrit 28.6 L 28.4 L Mean Corpuscular Volume 92.6 93.1 Mean Corpuscular Hemoglobin 29.4 29.5 Mean Corpuscular Hemoglobin Concent 31.8 L 31.7 L Red Cell Distribution Width 13.9 14.1 Platelet Count 214 230 Mean Platelet Volume 10.5 H 10.9 H Neutrophils % 71.9 79.6 H Lymphocytes % 16.4 9.6 L Monocytes % 7.2 7.5 Eosinophils % 3.9 2.5 Basophils % 0.4 0.4 Nucleated Red Blood Cells % 0.0 0.0 Neutrophils # 3.7 5.6 Lymphocytes # 0.8 0.7 L Monocytes # 0.4 0.5 Eosinophils # 0.2 0.2 Basophils # 0.0 0.0 Nucleated Red Blood Cells # 0.0 0.0 Prothrombin Time 23.3 #H 16.0 #H Prothrombin Time Ratio 1.8 1.3 INR International Normalized Ratio 2.05 1.27 Sodium Level 138 Potassium Level 3.9 Chloride Level 114 H Carbon Dioxide Level 21 Anion Gap 7 L Blood Urea Nitrogen 14 Creatinine 0.81 Glucose Level 98 Calcium Level 8.3 L Phosphorus Level 3.0 Magnesium Level 1.9 Total Bilirubin 0.4 Direct Bilirubin 0.00 Indirect Bilirubin 0.4 Aspartate Amino Transf (AST/SGOT) 43 Alanine Aminotransferase (ALT/SGPT) 52 Alkaline Phosphatase 57 Total Protein 5.0 L Albumin 2.6 L Medications Medications Current Medications Ondansetron HCl (Zofran Inj) 4 mg Q6H PRN IV NAUSEA AND/OR VOMITING; Start 08/24 at 16:30 Famotidine (Pepcid Iv) 20 mg QHS IV Last administered on 08/28/16 20:49; Admin Dose 20 MG; Start 08/24/16 at 21:00 Carbidopa/Levodopa (Sinemet (25/ 100)) 1 tab TID PO Last administered on 08:16; Admin Dose 1 TAB; Start 08/24/16 at 21:00 Tamsulosin HCl (Flomax) 0.4 mg QPM PO Last administered on 08/28/16 20:50; Admin Dose 0.4 MG; Start 08/24/16 at 21:00 Tramadol HCl (Ultram) 50 mg BID PRN PO PAIN; Start 08/24/16 at 16:30 IV Flush (NS 10 ml) 10 ml PRN PRN IV IV PROTOCOL; Start 08/24/16 at 17:00 Atorvastatin Calcium (Lipitor) 80 mg HS PO Last administered on 08/28/16 20:50 ; Admin Dose 80 MG; Start 08/24/16 at 21:00 Clopidogrel Bisulfate (plaVIX) 75 mg DAILY PO Last administered on 08/29/16 08: 15; Admin Dose 75 MG; Start 08/26/16 at 09:00 Miscellaneous Information (* Miscellaneous Pharmacy Order) Hold all Metformin ... ONCE XX ; Start 08/28/16 at 14:30; Stop 08/30/16 at 14:29 Oxycodone/ Acetaminophen (Percocet (5/ 325)) 1 tab Q4H PRN PO REPORTED NON- CARDIAC PAIN 4-7; Start 08/28/16 at 14:30 Morphine Sulfate (morphine) 1 mg Q1H PRN IV PAIN NOT RELIEVED BY OTHERS; Start 08/28/16 at 14:30 Aspirin (Aspirin) 325 mg DAILY PO Last administered on 08/29/16 08:15; Admin Dose 325 MG; Start 08/29/16 at 09:00 Lisinopril (Zestril) 2.5 mg DAILY PO Last administered on 08/29/16 08:15; Admin Dose 2.5 MG; Start 08/29/16 at 09:00 Lactobacillus Acidophilus/ Rhamnosus 1 cap 1 cap BID PO Last administered on 08:15; Admin Dose 1 CAP; Start 08/28/16 at 21:00 Meropenem/Sodium Chloride (Merrem/NS) 100 ml @ 200 mls/hr Q12 IVPB Last administered on 08/29/16t 08:25; Admin Dose 200 MLS/HR; Start 08/28/16 at 21:00 CYNTHIA GAGE MD August 29, 2016 09:24
[2016-08-29] MEDS: HEPARIN 1000 UNITS/ML 10 ML INJ IV PRN (09:58)
[2016-08-29] MEDS: HEPARIN 25000 UNITS/250 ML 250 ML IV SCH ×3 (10:01→22:56)
--- NOTE | 2016-08-29 14:12 | RADRPT ---
Vent Rate: 68 bpm RR Interval: 0 msec ND Interval: 174 msec QRS Duration: 106 msec QT Interval: 472 msec QTC Interval: 501 msec P-R-T Gardner: 60 - -46 - 95 degrees Normal sinus rhythm Left axis deviation Anteroseptal infarct , age undetermined T wave abnormality, consider lateral ischemia Prolonged QT Abnormal ECG Electronically Signed By: Mario Dexter [id number]
--- NOTE | 2016-08-29 14:13 | RADRPT ---
Vent Rate: 79 bpm RR Interval: 0 msec NE Interval: 160 msec QRS Duration: 110 msec QT Interval: 444 msec QTC Interval: 509 msec P-R-T Turner: 42 - -66 - 94 degrees Normal sinus rhythm Left axis deviation Low voltage QRS Septal infarct , age undetermined T wave abnormality, consider anterior ischemia Prolonged QT Abnormal ECG Electronically Signed By: Mario Dexter [id number]
--- NOTE | 2016-08-29 17:35 | PN ---
Date/Time of Note Date/Time of Note DATE: 08/29/16 TIME: 17:33 Assessment/Plan VTE Prophylaxis VTE Prophylaxis Intervention: LMWH Lines/Catheters IV Catheter Type (from Nrs): PICC Line Central line still needed: Yes (iv access) Urinary Cath still in place: Yes Reason Cath still needed: urinary retention Assessment/Plan Chief Complaint/Hosp Course S-doing ok, transfer to telemetry O- vss; SR PE no pallor/jvd s2s2 reg; no m/r/g ctab bs+ nt nd; no r/r/g no edema A/P 1) Ac encephalopathy; stable/nonfocal; monitor. 2) NSTEMI; sp pci*2 to LAD; Cx Dz remains. 3) Ischemic CMY. code status? 4) Chr parkinsonism 5) Ftt 6) Recent lue surgery 7) Bph 8) CAD; EF 25% 9) Ho stroke? on plavix 10) Thoracic aorta dilated 4cm. no aneurysm 11) Renal insuff 12) Djd 13) Nephrolithiasis 14) Anemia 15) Atelectasis 16) ESBL cystitis. 5 days meropenem. Problems: Exam/Review of Systems Vital Signs Vitals Vital Signs Date Time Temp Pulse Resp B/P Pulse Ox O2 Delivery O2 Flow Rate FiO2 08/29/16 16:54 116 08/29/16 15:27 97.8 16 120/71 97 08/28/16 18:00 Room Air 08/25/16 11:00 2.0 Intake and Output 08/28/16 08/28/16 08/29/16 15:00 23:00 07:00 Intake Total 481 ml 356 ml Output Total 600 ml 1200 ml Balance -119 ml -844 ml Results Result Diagram: 08/29/16 0606 08/29/16 0606 Results 24 hrs Laboratory Tests Test 08/28/16 22:10 08/29/16 06:06 08/29/16 15:35 Prothrombin Time 16.0 #H Prothrombin Time Ratio 1.3 INR International Normalized Ratio 1.27 Activated Partial Thromboplast Time 41.1 H 45.3 H 77.6 *H White Blood Count 7.1 # Red Blood Count 3.05 L Hemoglobin 9.0 L Hematocrit 28.4 L Mean Corpuscular Volume 93.1 Mean Corpuscular Hemoglobin 29.5 Mean Corpuscular Hemoglobin Concent 31.7 L Red Cell Distribution Width 14.1 Platelet Count 230 Mean Platelet Volume 10.9 H Neutrophils % 79.6 H Lymphocytes % 9.6 L Monocytes % 7.5 Eosinophils % 2.5 Basophils % 0.4 Nucleated Red Blood Cells % 0.0 Neutrophils # 5.6 Lymphocytes # 0.7 L Monocytes # 0.5 Eosinophils # 0.2 Basophils # 0.0 Nucleated Red Blood Cells # 0.0 Sodium Level 138 Potassium Level 3.9 Chloride Level 114 H Carbon Dioxide Level 21 Anion Gap 7 L Blood Urea Nitrogen 14 Creatinine 0.81 Glucose Level 98 Calcium Level 8.3 L Phosphorus Level 3.0 Magnesium Level 1.9 Total Bilirubin 0.4 Direct Bilirubin 0.00 Indirect Bilirubin 0.4 Aspartate Amino Transf (AST/SGOT) 43 Alanine Aminotransferase (ALT/SGPT) 52 Alkaline Phosphatase 57 Total Protein 5.0 L Albumin 2.6 L Thyroid Stimulating Hormone (TSH) 2.910 Medications Medications Current Medications Ondansetron HCl (Zofran Inj) 4 mg Q6H PRN IV NAUSEA AND/OR VOMITING; Start 08/24 at 16:30 Famotidine (Pepcid Iv) 20 mg QHS IV Last administered on 08/28/16 20:49; Admin Dose 20 MG; Start 08/24/16 at 21:00 Carbidopa/Levodopa (Sinemet (25/ 100)) 1 tab TID PO Last administered on 13:56; Admin Dose 1 TAB; Start 08/24/16 at 21:00 Tamsulosin HCl (Flomax) 0.4 mg QPM PO Last administered on 08/28/16 20:50; Admin Dose 0.4 MG; Start 08/24/16 at 21:00 Tramadol HCl (Ultram) 50 mg BID PRN PO PAIN; Start 08/24/16 at 16:30 IV Flush (NS 10 ml) 10 ml PRN PRN IV IV PROTOCOL; Start 08/24/16 at 17:00 Atorvastatin Calcium (Lipitor) 80 mg HS PO Last administered on 08/28/16 20:50 ; Admin Dose 80 MG; Start 08/24/16 at 21:00 Clopidogrel Bisulfate (plaVIX) 75 mg DAILY PO Last administered on 08/29/16 08: 15; Admin Dose 75 MG; Start 08/26/16 at 09:00 Miscellaneous Information (* Miscellaneous Pharmacy Order) Hold all Metformin ... ONCE XX ; Start 08/28/16 at 14:30; Stop 08/30/16 at 14:29 Oxycodone/ Acetaminophen (Percocet (5/ 325)) 1 tab Q4H PRN PO REPORTED NON- CARDIAC PAIN 4-7; Start 08/28/16 at 14:30 Morphine Sulfate (morphine) 1 mg Q1H PRN IV PAIN NOT RELIEVED BY OTHERS; Start 08/28/16 at 14:30 Aspirin (Aspirin) 325 mg DAILY PO Last administered on 08/29/16 08:15; Admin Dose 325 MG; Start 08/29/16 at 09:00 Lisinopril (Zestril) 2.5 mg DAILY PO Last administered on 08/29/16 08:15; Admin Dose 2.5 MG; Start 08/29/16 at 09:00 Lactobacillus Acidophilus/ Rhamnosus 1 cap 1 cap BID PO Last administered on 08:15; Admin Dose 1 CAP; Start 08/28/16 at 21:00 Meropenem/Sodium Chloride (Merrem/NS) 100 ml @ 200 mls/hr Q12 IVPB Last administered on 08/29/16 08:25; Admin Dose 200 MLS/HR; Start 08/28/16 at 21:00 ESCOBAR CARRASCO MD August 29, 2016 17:34
[2016-08-29] MEDS: ATORVASTATIN 80 MG TAB PO SCH (20:37)
[2016-08-29] MEDS: TAMSULOSIN (SR) 0.4 MG CAP PO SCH (20:38)
[2016-08-30] VITALS (42 sets, daily range): BP systolic 100–186; BP diastolic 56–127; PULSE 63–102; RESP 12–34
[2016-08-30 06:23] LABS: ADD SCAN DIFF NO
[2016-08-30 06:29] LABS: BASOPHILS % 0.3 % (0.0-2.0); EOSINOPHILS # 0.3 10^3/ul (0.0-0.5); EOSINOPHILS % 4.5 % (0.0-7.0); HEMATOCRIT 28.4 % (42.0-52.0); HEMOGLOBIN 9.1 g/dl (14.0-18.0); LYMPHOCYTES # 0.9 10^3/ul (0.8-2.9); LYMPHOCYTES % 15.4 % (15.0-51.0); MEAN CORPUSCULAR HEMOGLOBIN 29.7 pg (29.0-33.0); MEAN CORPUSCULAR VOLUME 92.8 fl (82.0-101.0); MEAN PLATELET VOLUME 10.7 fl (7.4-10.4); MONOCYTE # 0.5 10^3/ul (0.3-0.9); MONOCYTES % 8.2 % (0.0-11.0); NEUTROPHIL # 4.2 10^3/ul (1.6-7.5); NEUTROPHILS % 71.3 % (39.0-77.0); PLATELET COUNT 258 10^3/UL (140-415); RED BLOOD COUNT 3.06 10^6/ul (4.70-6.10); RED CELL DISTRIBUTION WIDTH 14.2 % (11.5-14.5)
[2016-08-30 07:01] LABS: CALCIUM 8.3 mg/dl (8.4-10.2); CREATININE 0.79 mg/dl (0.61-1.24); MAGNESIUM 1.8 mg/dl (1.7-2.5); PHOSPHORUS 2.6 mg/dl (2.5-4.9); POTASSIUM 3.6 mmol/L (3.5-5.1)
[2016-08-30] MEDS: CARBIDOPA/LEVODOPA (25/100) TAB PO SCH ×3 (08:44→20:47)
[2016-08-30] MEDS: MEROPENEM 2 GM in SOD CHLORIDE 0.9% 100 ML IVPB SCH ×2 (08:44→21:18)
[2016-08-30] MEDS: CLOPIDOGREL 75 MG TAB PO SCH (08:44)
[2016-08-30] MEDS: ASPIRIN 325 MG TAB PO SCH (08:44)
[2016-08-30] MEDS: LACTOBACILLUS RHAMNOSUS CAP PO SCH ×2 (08:44→20:47)
[2016-08-30] MEDS: FAMOTIDINE 20 MG TAB PO SCH (08:45)
[2016-08-30] MEDS: LISINOPRIL 5 MG TAB PO SCH (08:47)
[2016-08-30] MEDS ORDERED: IODIXANOL LOCM 100 ML BTL ONE ×2 (08:48→11:09)
[2016-08-30] MEDS ORDERED: LIDOCAINE 1% (MDV) 20 ML INJ ONE (08:48)
[2016-08-30] MEDS ORDERED: HEPARIN 1000 UNITS/ML 10 ML INJ ONE (08:49)
[2016-08-30] MEDS ORDERED: VERAPAMIL 5 MG INJ ONE (08:49)
[2016-08-30] MEDS ORDERED: NITROGLYCERIN (IC) 100 MCG/ML INJ ONE (08:49)
[2016-08-30] MEDS ORDERED: FENTAnyl 50 MCG/ML VIAL ONE (09:28)
[2016-08-30] MEDS ORDERED: MIDAZOLAM 1 MG/ML 2 ML INJ ONE (09:28)
[2016-08-30] MEDS ORDERED: hydrALAzine 20 MG INJ IV ONE (09:30)
[2016-08-30] MEDS ORDERED: LISINOPRIL 5 MG TAB PO ONE (09:30)
[2016-08-30] MEDS ORDERED: BIVALIRUDIN 250MG /NS 50 ML 50 ML IVPB ONE (10:06)
[2016-08-30] MEDS ORDERED: SOD CHLORIDE 0.9% 1,000 ML IV SCH (11:44)
--- NOTE | 2016-08-30 11:53 | CONS ---
Date/Time of Note Date/Time of Note DATE: 08/30/16 TIME: 11:50 Assessment/Plan Assessment/Plan Chief Complaint/Hosp Course IMPRESSION: 1. Acute myocardial infarction. Currently with ongoing renal failure and denies chest pain. Hemodynamically stable.-currently downtrending cardiac enzymes. Now s/p PTCA/stent x 2 to 100% occluded LAD prox. Has 90% diffuse LCX which can be staged at a later date 2. Abnormal electrocardiogram with anterior anteroseptal Q's indicative of the patient's infarction that has probably just subacutely occurred. 3. History of percutaneous transluminal coronary angioplasty and stent placement in 2011 with possible recent stoppage of Plavix for surgery per chart biopsy. 4. Status post recent left upper extremity surgery in the last 1 week. 5. Renal failure-improved 6. Encephalopathy. 7. Hyponatremia. 8. Urinary tract infection. 9. Leukocytosis. 10. Anemia. 11.Cardiomyopathy-decreased LVEF 25-30 by echo by s admit REcc: -Tele -serial ecg's -Continue asa 25 mg and plavix 75 mg daily now s/p ptca/stent x 2 to LAD -Trend cardiac enzymes -Continue statin -start low dose ACEI afterload reduction and BB thereafter as tolerated -Staged procedure to intervene upon LCX today Problems: Consultation Date/Type/Reason Admit Date/Time August 24, 2016 at 16:07 Initial Consult Date 08/24/2016 Type of Consultation: Cardiology Reason for Consultation Nstemi Referring Provider: YAMILKA WOODRUFF Exam/Review of Systems Vital Signs Vitals Vital Signs Date Time Temp Pulse Resp B/P Pulse Ox O2 Delivery O2 Flow Rate FiO2 08/30/16 08:24 77 08/30/16 07:52 98.0 20 183/92 96 08/28/16 18:00 Room Air Intake and Output 08/29/16 08/29/16 08/30/16 15:00 23:00 07:00 Intake Total 1037.5 ml 298 ml Output Total 550 ml 700 ml Balance 487.5 ml -402 ml Exam Review of Systems: CONSTITUTIONAL: No fevers, chills. PULMONARY: No sob CARDIOVASCULAR: No chest pain/palpitations GASTROINTESTINAL: No nausea/vomiting. GENITOURINARY: No hematuria/dysuria. MUSCULOSKELETAL: No myagias/arthalgias. PSYCHIATRIC: The patient denies depression. NEUROLOGIC: No weakness Constitutional: alert Psych: confusion, no complaints Head: normocephalic ENMT: mucosa pink and moist Neck: jvd (9 cm water), supple Respiratory: diminished breath sounds Cardiovascular: regular rate and rhythm Gastrointestinal: non-tender, soft Musculoskeletal: muscle tone (normal) Extremities: edema (none) Neurological: other (No focal deficits) Results Result Diagram: 08/30/16 0547 08/30/16 0547 Results 24 hrs Laboratory Tests Test 08/29/16 15:35 08/29/16 22:27 08/30/16 05:47 08/30/16 06:19 Activated Partial Thromboplast Time 77.6 *H 57.3 H 60.4 H White Blood Count 6.0 Red Blood Count 3.06 L Hemoglobin 9.1 L Hematocrit 28.4 L Mean Corpuscular Volume 92.8 Mean Corpuscular Hemoglobin 29.7 Mean Corpuscular Hemoglobin Concent 32.0 Red Cell Distribution Width 14.2 Platelet Count 258 Mean Platelet Volume 10.7 H Neutrophils % 71.3 Lymphocytes % 15.4 Monocytes % 8.2 Eosinophils % 4.5 Basophils % 0.3 Nucleated Red Blood Cells % 0.0 Neutrophils # 4.2 Lymphocytes # 0.9 Monocytes # 0.5 Eosinophils # 0.3 Basophils # 0.0 Nucleated Red Blood Cells # 0.0 Sodium Level 139 Potassium Level 3.6 Chloride Level 112 H Carbon Dioxide Level 21 Anion Gap 10 Blood Urea Nitrogen 16 Creatinine 0.79 Glucose Level 97 Calcium Level 8.3 L Phosphorus Level 2.6 Magnesium Level 1.8 Medications Medications Current Medications Ondansetron HCl (Zofran Inj) 4 mg Q6H PRN IV NAUSEA AND/OR VOMITING; Start 08/24 at 16:30 Carbidopa/Levodopa (Sinemet (25/ 100)) 1 tab TID PO Last administered on 08:44; Admin Dose 1 TAB; Start 08/24/16 at 21:00 Tamsulosin HCl (Flomax) 0.4 mg QPM PO Last administered on 08/29/16 20:38; Admin Dose 0.4 MG; Start 08/24/16 at 21:00 Tramadol HCl (Ultram) 50 mg BID PRN PO PAIN; Start 08/24/16 at 16:30 IV Flush (NS 10 ml) 10 ml PRN PRN IV IV PROTOCOL; Start 08/24/16 at 17:00 Atorvastatin Calcium (Lipitor) 80 mg HS PO Last administered on 08/29/16 20:37 ; Admin Dose 80 MG; Start 08/24/16 at 21:00 Clopidogrel Bisulfate (plaVIX) 75 mg DAILY PO Last administered on 08/30/16 08 :44; Admin Dose 75 MG; Start 08/26/16 at 09:00 Miscellaneous Information (* Miscellaneous Pharmacy Order) Hold all Metformin ... ONCE XX ; Start 08/28/16 at 14:30; Stop 08/30/16 at 14:29 Oxycodone/ Acetaminophen (Percocet (5/ 325)) 1 tab Q4H PRN PO REPORTED NON- CARDIAC PAIN 4-7; Start 08/28/16 at 14:30 Morphine Sulfate (morphine) 1 mg Q1H PRN IV PAIN NOT RELIEVED BY OTHERS; Start 08/28/16 at 14:30 Aspirin (Aspirin) 325 mg DAILY PO Last administered on 08/30/16 08:44; Admin Dose 325 MG; Start 08/29/16 at 09:00 Lisinopril (Zestril) 2.5 mg DAILY PO Last administered on 08/30/16 08:47; Admin Dose 2.5 MG; Start 08/29/16 at 09:00 Lactobacillus Acidophilus/ Rhamnosus 1 cap 1 cap BID PO Last administered on 08:44; Admin Dose 1 CAP; Start 08/28/16 at 21:00 Meropenem/Sodium Chloride (Merrem/NS) 100 ml @ 200 mls/hr Q12 IVPB Last administered on 08/30/16 08:44; Admin Dose 200 MLS/HR; Start 08/28/16 at 21:00 Famotidine (Pepcid) 20 mg DAILY PO Last administered on 08/30/16 08:45; Admin Dose 20 MG; Start 08/30/16 at 09:00 Acetaminophen (Tylenol Tab) 650 mg Q4H PRN PO NON-CARDIAC PAIN LEVEL 1-3; Start 08/30/16 at 12:00; Status UNV Oxycodone/ Acetaminophen (Percocet (5/ 325)) 1 tab Q4H PRN PO REPORTED NON- CARDIAC PAIN 4-7; Start 08/30/16 at 12:00; Status UNV Morphine Sulfate (morphine) 1 mg Q1H PRN IV PAIN NOT RELIEVED BY OTHERS; Start 08/30/16 at 12:00; Status UNV Al Hydrox/Mg Hydrox/ Simethicone 30 ml 30 ml Q4H PRN PO GASTROINTESTINAL UPSET ; Start 08/30/16 at 12:00; Status UNV Sodium Chloride (NS) 1,000 ml @ 75 mls/hr [id number] IV ; Start 08/30/16 at 11:44 ; Stop 08/31/16 at 01:03; Status UNV CHANTALE SHAH August 30, 2016 11:53
[2016-08-30] MEDS ORDERED: ACETAMINOPHEN 325 MG TAB PO PRN (12:00)
[2016-08-30] MEDS ORDERED: ZOLPIDEM 5 MG TAB PO PRN (12:00)
[2016-08-30] MEDS ORDERED: morphine 2 MG INJ IV PRN (12:00)
[2016-08-30] MEDS ORDERED: OXYCODONE/ACETAMINOPHEN (5/325) TAB PO PRN (12:00)
[2016-08-30] MEDS ORDERED: AL HYDROX/MG HYDROX/SIMETH 30 ML CUP PO PRN (12:00)
[2016-08-30] MEDS ORDERED: hydrALAzine 20 MG INJ IV PRN (13:00)
--- NOTE | 2016-08-30 13:30 | CARRPT ---
DATE OF PROCEDURE: 08/30/2016 TYPE OF PROCEDURE: 1. Left heart catheterization. 2. Coronary angiography. 3. Percutaneous transluminal coronary angioplasty with placement of Synergy drug-eluting stents x3 to circumflex, 2.25 x 12 mm x2 and 2.5 mm x 12 mm x1. ATTENDING PHYSICIAN: Chantale Birmingham MD REFERRING PHYSICIAN: Yamilka Woodruff MD, from the hospitalist service. INDICATION: Acute myocardial infarction. ANESTHESIA: Conscious and local. BRIEF HISTORY AND HOSPITAL COURSE: Mr. Gallegos is an 81-year-old male with history of hypertension, d yslipidemia, coronary artery disease, status post prior PTCA and stent placement, who initially pres ented with complaints of substernal chest pain and ruled in for acute myocardial infarction, underwe nt prior PTCA and stent placement to 100% occluded circs and now being brought back to intervene upo n high grade stenosis in the circumflex. PROCEDURE: After informed consent was obtained, the patient was brought to the [facility] cardiac catheterization lab where his right radial area was prepped and draped in the usual sterile fashion. 2% lidocaine was infiltrated into right radial area and order to achieve adequate anesthesia. With modified Seldinger technique, the radial artery was cannulated and a 6-Maori art erial sheath was placed. A 6-Maori JL3.5 catheter was used to cannulate the left main coronary ost ium. With contrast injection, multiple views of the left coronary arterial system were obtained. A t this time, we moved directly to interventional procedure. The patient's left main was cannulated with an XB 3 6-Maori guide, a 0.014 Physical Therapist Aide 50 guidewire was p assed distal to the lesion and the lesion was pretreated with a 2.0 x 12 mm balloon up to 12 to 14 a tmospheres throughout its entirety of the lesion. Subsequently, this was removed and we attempted t o pass initially a 2.25 x 24 mm drug-eluting stent unsuccessfully, and this was exchanged for a 2.25 x 12 mm, which was still unsuccessful. We added a Mailman support wire and then we were able to pa ss the stent. The stent was deployed at 14 atmospheres. Stent delivery system was removed. A seco nd 2.25 x 12 mm stent was deployed after repositioning of a Mailman with a Physical Therapist Aide 50 yocasta wire. The second stent was deployed at 14 atmospheres. The stent delivery system was removed. Followup rose ogram was obtained revealing excellent result deployment of the second stent. Subsequently, at this time a third stent 2.5 x 12 mm at a proximal covering the proximal lesion and it was deploye d at 14 atmospheres, post-dilated with the stent delivery system up to 16 atmospheres, once again wi th the use of a Mailman and a yocasta wire was thought to be pulled back and then removed. At this ti me, the stent delivery system was removed. Followup angiogram was obtained revealing excellent resu lt deployment of all stents, CELESTINO 3 flow throughout the vessel and no signs of complication includin g perforation or dissection and additionally, there is an obtuse marginal bifurcated midway through the proximal stent which remained widely patent. It did suffer some plaque shift up to approximatel y 50%. Subsequently, at this time, the patient's interventional guide was removed and additionally was note d that the guide had crossed the aortic valve and we used to measure left ventricular end diastolic pressure and assess the aortic valve gradient prior to removal. Subsequently, the sheath was remove d. TR band was applied. This completed the procedure. There were no noted complications. FINDINGS: 1. Coronary angiography. Left main short 4 mm, no significant stenoses. LAD proximally is a 3 mm vessel, proximal stent, then a long stented zone thereafter widely patent with no signs of complicat ion including perforation or dissection. The circumflex proximally is a 3 mm vessel and at the bifu rcation of the circumflex continuation AV groove, there is a focal 80% to 90% stenosis and then with in the obtuse marginal there are diffuse 90% stenosis. Post-PTCA and stent placement, there was no residual stenosis in this region, mild step down at the distal end of the stent, and noticed some pl aque shift into the obtuse marginal that bifurcated midway to the proximal stent but remained to hav e excellent flow. Measurement of the left ventricular end diastolic pressure 13 to 15. TOTAL FLUOROSCOPY TIME: 39 minutes. TOTAL CONTRAST: 200 mL. IMPRESSION: 1. Widely patent previously placed stent in left anterior descending. 2. Successful percutaneous transluminal coronary angioplasty and stent placement x3 to circumflex, obtuse marginal with drug-eluting stents x3, 2.25 x 12 mm x2 and 2.5 x 12 mm x1. RECOMMENDATIONS: In light of previous finding, at this time would: 1. Maintain patient on his Plavix 75 mg 1 tab p.o. daily. 2. Aspirin 325 mg 1 tab p.o. daily. 3. Maximize medical management. 4. Aggressive risk factor reduction. 5. Patient will be readmitted to the ICU for post-intervention observation and continued management of symptoms. Dictated By: CHANTALE PIÑA/MOHAMUD Conf#: [id number] DID#: [id number] CC: YAMILKA WOODRUFF MD;*EndCC*
--- NOTE | 2016-08-30 16:03 | PN ---
Date/Time of Note Date/Time of Note DATE: 08/30/16 TIME: 16:01 Assessment/Plan VTE Prophylaxis VTE Prophylaxis Intervention: contraindicated (blleeding risk) Lines/Catheters IV Catheter Type (from Nrs): PICC Line Central line still needed: Yes (iv access) Urinary Cath still in place: Yes Reason Cath still needed: urinary retention Assessment/Plan Chief Complaint/Hosp Course S- 08/29 doing ok, transfer to telemetry 08/30- sp cath O- vss; SR PE no pallor/jvd s2s2 reg; no m/r/g ctab bs+ nt nd; no r/r/g no edema A/P 1) Ac encephalopathy; stable/nonfocal; monitor. 2) NSTEMI; sp pci*2 to LAD; now sp pci*3 to Cx. 3) Ischemic CMY. code status? 4) Chr parkinsonism 5) Ftt 6) Recent lue surgery- Lt shoulder tendon repair. 7) Bph 8) CAD; EF 25% 9) Ho stroke? on plavix 10) Thoracic aorta dilated 4cm. no aneurysm 11) Renal insuff 12) Djd 13) Nephrolithiasis 14) Anemia 15) Atelectasis 16) ESBL cystitis. 5 days meropenem. Problems: Exam/Review of Systems Vital Signs Vitals Vital Signs Date Time Temp Pulse Resp B/P Pulse Ox O2 Delivery O2 Flow Rate FiO2 08/30/16 14:30 72 24 136/75 98 Room Air 08/30/16 12:00 97.5 Intake and Output 08/29/16 08/29/16 08/30/16 15:00 23:00 07:00 Intake Total 1037.5 ml 298 ml Output Total 550 ml 700 ml Balance 487.5 ml -402 ml Results Result Diagram: 08/30/16 0547 08/30/16 0547 Results 24 hrs Laboratory Tests Test 08/29/16 22:27 08/30/16 05:47 08/30/16 06:19 Activated Partial Thromboplast Time 57.3 H 60.4 H White Blood Count 6.0 Red Blood Count 3.06 L Hemoglobin 9.1 L Hematocrit 28.4 L Mean Corpuscular Volume 92.8 Mean Corpuscular Hemoglobin 29.7 Mean Corpuscular Hemoglobin Concent 32.0 Red Cell Distribution Width 14.2 Platelet Count 258 Mean Platelet Volume 10.7 H Neutrophils % 71.3 Lymphocytes % 15.4 Monocytes % 8.2 Eosinophils % 4.5 Basophils % 0.3 Nucleated Red Blood Cells % 0.0 Neutrophils # 4.2 Lymphocytes # 0.9 Monocytes # 0.5 Eosinophils # 0.3 Basophils # 0.0 Nucleated Red Blood Cells # 0.0 Sodium Level 139 Potassium Level 3.6 Chloride Level 112 H Carbon Dioxide Level 21 Anion Gap 10 Blood Urea Nitrogen 16 Creatinine 0.79 Glucose Level 97 Calcium Level 8.3 L Phosphorus Level 2.6 Magnesium Level 1.8 Medications Medications Current Medications Ondansetron HCl (Zofran Inj) 4 mg Q6H PRN IV NAUSEA AND/OR VOMITING; Start 08/24 at 16:30 Carbidopa/Levodopa (Sinemet (25/ 100)) 1 tab TID PO Last administered on 13:00; Admin Dose 1 TAB; Start 08/24/16 at 21:00 Tamsulosin HCl (Flomax) 0.4 mg QPM PO Last administered on 08/29/16 20:38; Admin Dose 0.4 MG; Start 08/24/16 at 21:00 Tramadol HCl (Ultram) 50 mg BID PRN PO PAIN; Start 08/24/16 at 16:30 IV Flush (NS 10 ml) 10 ml PRN PRN IV IV PROTOCOL; Start 08/24/16 at 17:00 Atorvastatin Calcium (Lipitor) 80 mg HS PO Last administered on 08/29/16 20:37 ; Admin Dose 80 MG; Start 08/24/16 at 21:00 Clopidogrel Bisulfate (plaVIX) 75 mg DAILY PO Last administered on 08/30/16 08 :44; Admin Dose 75 MG; Start 08/26/16 at 09:00 Aspirin (Aspirin) 325 mg DAILY PO Last administered on 08/30/16 08:44; Admin Dose 325 MG; Start 08/29/16 at 09:00 Lisinopril (Zestril) 2.5 mg DAILY PO Last administered on 08/30/16 08:47; Admin Dose 2.5 MG; Start 08/29/16 at 09:00 Lactobacillus Acidophilus/ Rhamnosus 1 cap 1 cap BID PO Last administered on 08:44; Admin Dose 1 CAP; Start 08/28/16 at 21:00 Meropenem/Sodium Chloride (Merrem/NS) 100 ml @ 200 mls/hr Q12 IVPB Last administered on 08/30/16 08:44; Admin Dose 200 MLS/HR; Start 08/28/16 at 21:00 Famotidine (Pepcid) 20 mg DAILY PO Last administered on 08/30/16 08:45; Admin Dose 20 MG; Start 08/30/16 at 09:00 Acetaminophen (Tylenol Tab) 650 mg Q4H PRN PO NON-CARDIAC PAIN LEVEL 1-3; Start 08/30/16 at 12:00 Oxycodone/ Acetaminophen (Percocet (5/ 325)) 1 tab Q4H PRN PO REPORTED NON- CARDIAC PAIN 4-7; Start 08/30/16 at 12:00 Morphine Sulfate (morphine) 1 mg Q1H PRN IV PAIN NOT RELIEVED BY OTHERS; Start 08/30/16 at 12:00 Al Hydrox/Mg Hydrox/ Simethicone 30 ml 30 ml Q4H PRN PO GASTROINTESTINAL UPSET ; Start 08/30/16 at 12:00 Sodium Chloride (NS) 1,000 ml @ 75 mls/hr [id number] IV Last administered on 08/30 12:25; Admin Dose 75 MLS/HR; Start 08/30/16 at 11:44; Stop 08/31/16 at 01: 03 Hydralazine HCl (Apresoline) 5 mg Q6H PRN IV sbp above 160; Start 08/30/16 at 13:00 ESCOBAR CARRASCO MD August 30, 2016 16:03
[2016-08-30] MEDS: ATORVASTATIN 80 MG TAB PO SCH (20:47)
[2016-08-30] MEDS: TAMSULOSIN (SR) 0.4 MG CAP PO SCH (20:47)
[2016-08-31] VITALS (23 sets, daily range): BP systolic 102–182; BP diastolic 71–143; PULSE 63–117; RESP 15–32
[2016-08-31 04:45] LABS: ADD SCAN DIFF NO
[2016-08-31 04:55] LABS: BASOPHILS % 0.3 % (0.0-2.0); EOSINOPHILS # 0.2 10^3/ul (0.0-0.5); HEMATOCRIT 28.4 % (42.0-52.0); LYMPHOCYTES # 0.9 10^3/ul (0.8-2.9); LYMPHOCYTES % 10.9 % (15.0-51.0); MEAN CORPUSCULAR HEMOGLOBIN 28.9 pg (29.0-33.0); MEAN CORPUSCULAR HGB CONC 31.7 g/dl (32.0-37.0); MEAN CORPUSCULAR VOLUME 91.3 fl (82.0-101.0); MONOCYTE # 0.7 10^3/ul (0.3-0.9); MONOCYTES % 8.8 % (0.0-11.0); NEUTROPHILS % 76.5 % (39.0-77.0); PLATELET COUNT 266 10^3/UL (140-415); RED BLOOD COUNT 3.11 10^6/ul (4.70-6.10); RED CELL DISTRIBUTION WIDTH 14.4 % (11.5-14.5); WHITE BLOOD COUNT 7.8 10^3/ul (4.8-10.8)
[2016-08-31 05:23] LABS: CALCIUM 8.1 mg/dl (8.4-10.2); CREATININE 0.79 mg/dl (0.61-1.24); POTASSIUM 3.6 mmol/L (3.5-5.1)
[2016-08-31 05:43] LABS: INR 1.19; PROTIME 15.2 Sec (12.2-14.2); PT RATIO 1.2
--- NOTE | 2016-08-31 08:40 | RADRPT ---
Vent Rate: 63 bpm RR Interval: 0 msec NV Interval: 162 msec QRS Duration: 110 msec QT Interval: 396 msec QTC Interval: 405 msec P-R-T [place]: 36 - -67 - 66 degrees Sinus rhythm with frequent PACs Left axis deviation Anteroseptal infarct , age undetermined Abnormal ECG Electronically Signed By: Gil Staples [id number]
[2016-08-31] MEDS: LACTOBACILLUS RHAMNOSUS CAP PO SCH ×2 (10:19→22:12)
[2016-08-31] MEDS: ASPIRIN 325 MG TAB PO SCH (10:19)
[2016-08-31] MEDS: CARBIDOPA/LEVODOPA (25/100) TAB PO SCH ×3 (10:19→21:06)
[2016-08-31] MEDS: CLOPIDOGREL 75 MG TAB PO SCH (10:20)
[2016-08-31] MEDS: FAMOTIDINE 20 MG TAB PO SCH (10:20)
[2016-08-31] MEDS: LISINOPRIL 5 MG TAB PO SCH (10:20)
--- NOTE | 2016-08-31 10:33 | RADRPT ---
Vent Rate: 69 bpm RR Interval: [address] Interval: 156 msec QRS Duration: 108 msec QT Interval: 484 msec QTC Interval: 518 msec P-R-T [place]: 58 - -72 - -87 degrees Sinus rhythm with premature atrial complexes Left axis deviation Incomplete right bundle branch block Anteroseptal infarct , age undetermined T wave abnormality, consider inferior ischemia Prolonged QT Abnormal ECG Electronically Signed By: Mario Dexter [id number]
--- NOTE | 2016-08-31 10:36 | RADRPT ---
Vent Rate: 73 bpm RR Interval: 0 msec [place] Interval: 158 msec QRS Duration: 98 msec QT Interval: 432 msec QTC Interval: 475 msec P-R-T [place]: 38 - -60 - 107 degrees Normal sinus rhythm with sinus arrhythmia Left axis deviation Anteroseptal infarct , age undetermined T wave abnormality, consider lateral ischemia Abnormal ECG Electronically Signed By: Mario Dexter [id number]
[2016-08-31] MEDS: MEROPENEM 2 GM in SOD CHLORIDE 0.9% 100 ML IVPB SCH ×2 (11:59→21:06)
--- NOTE | 2016-08-31 13:20 | CONS ---
Date/Time of Note Date/Time of Note DATE: 08/31/16 TIME: 13:15 Assessment/Plan Assessment/Plan Chief Complaint/Hosp Course IMPRESSION: 1. Acute myocardial infarction. Currently with ongoing renal failure and denies chest pain. Hemodynamically stable.-currently downtrending cardiac enzymes. Now s/p PTCA/stent x 2 to 100% occluded LAD prox. And now POD#1 s/p PTCA/stent x 3 to LCX 2. Abnormal electrocardiogram with anterior anteroseptal Q's indicative of the patient's infarction that has probably just subacutely occurred. 3. History of percutaneous transluminal coronary angioplasty and stent placement in 2011 with possible recent stoppage of Plavix for surgery per chart biopsy. 4. Status post recent left upper extremity surgery in the last 1 week. 5. Renal failure-improved 6. Encephalopathy. 7. Hyponatremia. 8. Urinary tract infection. 9. Leukocytosis. 10. Anemia. 11.Cardiomyopathy-decreased LVEF 25-30 by echo by s admit REcc: -Tele -serial ecg's -Continue asa 25 mg and plavix 75 mg daily -Trend cardiac enzymes -Continue statin -INcrease ACEI and start BB to improve BP/HR control -Continue abx's for UTI -D/c plannig when ok from ID standpoint with outpatient cards close f/u 2-3 weeks Problems: Consultation Date/Type/Reason Admit Date/Time August 24, 2016 at 16:07 Initial Consult Date 08/24/2016 Type of Consultation: Cardiology Reason for Consultation Acute LA s/p PTCA/stent Referring Provider: YAMILKA WOODRUFF Exam/Review of Systems Vital Signs Vitals Vital Signs Date Time Temp Pulse Resp B/P Pulse Ox O2 Delivery O2 Flow Rate FiO2 08/31/16 12:00 71 08/31/16 11:00 20 152/100 95 Room Air 08/31/16 04:00 98.6 Intake and Output 08/30/16 08/30/16 08/31/16 15:00 23:00 07:00 Intake Total 565 ml 752 ml 463 ml Output Total 210 ml 520 ml 365 ml Balance 355 ml 232 ml 98 ml Exam Review of Systems: CONSTITUTIONAL: No fevers, chills. PULMONARY: No sob CARDIOVASCULAR: No chest pain/palpitations GASTROINTESTINAL: No nausea/vomiting. GENITOURINARY: No hematuria/dysuria. MUSCULOSKELETAL: No myagias/arthalgias. PSYCHIATRIC: The patient denies depression. NEUROLOGIC: No weakness Constitutional: alert Psych: confusion Head: normocephalic ENMT: mucosa pink and moist Neck: jvd (8 cm water), supple Respiratory: clear to auscultation Cardiovascular: regular rate and rhythm Gastrointestinal: non-tender, soft Musculoskeletal: muscle tone (normal) Extremities: other (R wrist with no sig ecchymosis or pain. no bleeding, palpable pulse R radial) Neurological: other (No focal deficits) Results Result Diagram: 08/31/1639908/31/16399 Results 24 hrs Laboratory Tests Test 08/31/16 04:00 White Blood Count 7.8 # Red Blood Count 3.11 L Hemoglobin 9.0 L Hematocrit 28.4 L Mean Corpuscular Volume 91.3 Mean Corpuscular Hemoglobin 28.9 L Mean Corpuscular Hemoglobin Concent 31.7 L Red Cell Distribution Width 14.4 Platelet Count 266 Mean Platelet Volume 11.0 H Neutrophils % 76.5 Lymphocytes % 10.9 L Monocytes % 8.8 Eosinophils % 3.0 Basophils % 0.3 Nucleated Red Blood Cells % 0.0 Neutrophils # 6.0 Lymphocytes # 0.9 Monocytes # 0.7 Eosinophils # 0.2 Basophils # 0.0 Nucleated Red Blood Cells # 0.0 Prothrombin Time 15.2 H Prothrombin Time Ratio 1.2 INR International Normalized Ratio 1.19 Sodium Level 138 Potassium Level 3.6 Chloride Level 112 H Carbon Dioxide Level 22 Anion Gap 8 Blood Urea Nitrogen 15 Creatinine 0.79 Glucose Level 99 Calcium Level 8.1 L Medications Medications Current Medications Ondansetron HCl (Zofran Inj) 4 mg Q6H PRN IV NAUSEA AND/OR VOMITING; Start 08/24 at 16:30 Carbidopa/Levodopa (Sinemet (25/ 100)) 1 tab TID PO Last administered on 10:19; Admin Dose 1 TAB; Start 08/24/16 at 21:00 Tamsulosin HCl (Flomax) 0.4 mg QPM PO Last administered on 08/30/16 20:47; Admin Dose 0.4 MG; Start 08/24/16 at 21:00 Tramadol HCl (Ultram) 50 mg BID PRN PO PAIN; Start 08/24/16 at 16:30 IV Flush (NS 10 ml) 10 ml PRN PRN IV IV PROTOCOL; Start 08/24/16 at 17:00 Atorvastatin Calcium (Lipitor) 80 mg HS PO Last administered on 08/30/16 20:47 ; Admin Dose 80 MG; Start 08/24/16 at 21:00 Clopidogrel Bisulfate (plaVIX) 75 mg DAILY PO Last administered on 08/31/16 10 :20; Admin Dose 75 MG; Start 08/26/16 at 09:00 Aspirin (Aspirin) 325 mg DAILY PO Last administered on 08/31/16 10:19; Admin Dose 325 MG; Start 08/29/16 at 09:00 Lisinopril (Zestril) 2.5 mg DAILY PO Last administered on 08/31/16 10:20; Admin Dose 2.5 MG; Start 08/29/16 at 09:00 Lactobacillus Acidophilus/ Rhamnosus 1 cap 1 cap BID PO Last administered on 10:19; Admin Dose 1 CAP; Start 08/28/16 at 21:00 Meropenem/Sodium Chloride (Merrem/NS) 100 ml @ 200 mls/hr Q12 IVPB Last administered on 08/31/16 11:59; Admin Dose 200 MLS/HR; Start 08/28/16 at 21:00 Famotidine (Pepcid) 20 mg DAILY PO Last administered on 08/31/16 10:20; Admin Dose 20 MG; Start 08/30/16 at 09:00 Acetaminophen (Tylenol Tab) 650 mg Q4H PRN PO NON-CARDIAC PAIN LEVEL 1-3; Start 08/30/16 at 12:00 Oxycodone/ Acetaminophen (Percocet (5/ 325)) 1 tab Q4H PRN PO REPORTED NON- CARDIAC PAIN 4-7; Start 08/30/16 at 12:00 Morphine Sulfate (morphine) 1 mg Q1H PRN IV PAIN NOT RELIEVED BY OTHERS; Start 08/30/16 at 12:00 Al Hydrox/Mg Hydrox/Simethicone (Mag-Al Plus) 30 ml Q4H PRN PO GASTROINTESTINAL UPSET; Start 08/30/16 at 12:00 Hydralazine HCl (Apresoline) 5 mg Q6H PRN IV sbp above 160; Start 08/30/16 at 13:00 CHANTALE SHAH 11, 2017 13:20
[2016-08-31 15:51] LABS: CK-MB 5.29 ng/ml (0.0-2.4); TROPONIN-I 3.21 ng/ml (0.00-0.12)
--- NOTE | 2016-08-31 16:45 | PN ---
Date/Time of Note Date/Time of Note DATE: 08/31/16 TIME: 16:43 Assessment/Plan VTE Prophylaxis VTE Prophylaxis Intervention: LMWH Lines/Catheters IV Catheter Type (from Nrs): PICC Line Central line still needed: Yes (iv access) Urinary Cath still in place: Yes Reason Cath still needed: urinary retention Assessment/Plan Chief Complaint/Hosp Course S- 08/29 doing ok, transfer to telemetry 08/30- sp cath 08/31- bp high from thigh; ~dbp high in arm. O- vss; SR PE no pallor/jvd s2s2 reg; no m/r/g ctab bs+ nt nd; no r/r/g no edema A/P 1) Ac encephalopathy; stable/nonfocal; monitor. 2) NSTEMI; sp pci*2 to LAD; now sp pci*3 to Cx. 3) Ischemic CMY. code status? 4) Chr parkinsonism 5) Ftt 6) Recent lue surgery- Lt shoulder tendon repair. NWB 7) Bph 8) CAD; EF 25% 9) Ho stroke? on plavix 10) Thoracic aorta dilated 4cm. no aneurysm 11) Renal insuff 12) Djd 13) Nephrolithiasis 14) Anemia 15) Atelectasis 16) ESBL cystitis. 5 days meropenem. 17. ftt; pt/ot Problems: Exam/Review of Systems Vital Signs Vitals Vital Signs Date Time Temp Pulse Resp B/P Pulse Ox O2 Delivery O2 Flow Rate FiO2 08/31/16 13:00 76 23 142/89 95 Room Air 08/31/16 12:00 98.2 Intake and Output 08/30/16 08/30/16 08/31/16 15:00 23:00 07:00 Intake Total 565 ml 752 ml 463 ml Output Total 210 ml 520 ml 365 ml Balance 355 ml 232 ml 98 ml Results Result Diagram: 08/31/16 0400 08/31/16 0400 Results 24 hrs Laboratory Tests Test 08/31/16 04:00 08/31/16 15:05 White Blood Count 7.8 # Red Blood Count 3.11 L Hemoglobin 9.0 L Hematocrit 28.4 L Mean Corpuscular Volume 91.3 Mean Corpuscular Hemoglobin 28.9 L Mean Corpuscular Hemoglobin Concent 31.7 L Red Cell Distribution Width 14.4 Platelet Count 266 Mean Platelet Volume 11.0 H Neutrophils % 76.5 Lymphocytes % 10.9 L Monocytes % 8.8 Eosinophils % 3.0 Basophils % 0.3 Nucleated Red Blood Cells % 0.0 Neutrophils # 6.0 Lymphocytes # 0.9 Monocytes # 0.7 Eosinophils # 0.2 Basophils # 0.0 Nucleated Red Blood Cells # 0.0 Prothrombin Time 15.2 H Prothrombin Time Ratio 1.2 INR International Normalized Ratio 1.19 Sodium Level 138 Potassium Level 3.6 Chloride Level 112 H Carbon Dioxide Level 22 Anion Gap 8 Blood Urea Nitrogen 15 Creatinine 0.79 Glucose Level 99 Calcium Level 8.1 L Creatine Kinase 115 Creatine Kinase Index 4.6 Creatinine Kinase MB (Mass) 5.29 H Troponin I 3.210 *H Medications Medications Current Medications Ondansetron HCl (Zofran Inj) 4 mg Q6H PRN IV NAUSEA AND/OR VOMITING; Start 08/24 at 16:30 Carbidopa/Levodopa (Sinemet (25/ 100)) 1 tab TID PO Last administered on 13:36; Admin Dose 1 TAB; Start 08/24/16 at 21:00 Tamsulosin HCl (Flomax) 0.4 mg QPM PO Last administered on 08/30/16 20:47; Admin Dose 0.4 MG; Start 08/24/16 at 21:00 Tramadol HCl (Ultram) 50 mg BID PRN PO PAIN; Start 08/24/16 at 16:30 IV Flush (NS 10 ml) 10 ml PRN PRN IV IV PROTOCOL; Start 08/24/16 at 17:00 Atorvastatin Calcium (Lipitor) 80 mg HS PO Last administered on 08/30/16 20:47 ; Admin Dose 80 MG; Start 08/24/16 at 21:00 Clopidogrel Bisulfate (plaVIX) 75 mg DAILY PO Last administered on 08/31/16 10 :20; Admin Dose 75 MG; Start 08/26/16 at 09:00 Aspirin (Aspirin) 325 mg DAILY PO Last administered on 08/31/16 10:19; Admin Dose 325 MG; Start 08/29/16 at 09:00 Lactobacillus Acidophilus/ Rhamnosus 1 cap 1 cap BID PO Last administered on 10:19; Admin Dose 1 CAP; Start 08/28/16 at 21:00 Meropenem/Sodium Chloride (Merrem/NS) 100 ml @ 200 mls/hr Q12 IVPB Last administered on 08/31/16 11:59; Admin Dose 200 MLS/HR; Start 08/28/16 at 21:00 Famotidine (Pepcid) 20 mg DAILY PO Last administered on 08/31/16 10:20; Admin Dose 20 MG; Start 08/30/16 at 09:00 Acetaminophen (Tylenol Tab) 650 mg Q4H PRN PO NON-CARDIAC PAIN LEVEL 1-3; Start 08/30/16 at 12:00 Oxycodone/ Acetaminophen (Percocet (5/ 325)) 1 tab Q4H PRN PO REPORTED NON- CARDIAC PAIN 4-7; Start 08/30/16 at 12:00 Morphine Sulfate (morphine) 1 mg Q1H PRN IV PAIN NOT RELIEVED BY OTHERS; Start 08/30/16 at 12:00 Al Hydrox/Mg Hydrox/Simethicone (Mag-Al Plus) 30 ml Q4H PRN PO GASTROINTESTINAL UPSET; Start 08/30/16 at 12:00 Hydralazine HCl (Apresoline) 5 mg Q6H PRN IV sbp above 160; Start 08/30/16 at 13:00 Lisinopril (Zestril) 10 mg DAILY PO ; Start 09/01/16 at 09:00 Metoprolol Succinate (Toprol Xl) 25 mg DAILY PO ; Start 09/01/16 at 09:00 ESCOBAR CARRASCO MD August 31, 2016 16:45
[2016-08-31] MEDS: ATORVASTATIN 80 MG TAB PO SCH (21:05)
[2016-08-31] MEDS: TAMSULOSIN (SR) 0.4 MG CAP PO SCH (21:06)
[2016-08-31] MEDS ORDERED: ZOLPIDEM 5 MG TAB PO PRN (22:00)
[2016-09-01] VITALS (9 sets, daily range): BP systolic 114–130; BP diastolic 79–88; PULSE 72–91; RESP 17–20
[2016-09-01] MEDS ORDERED: LISINOPRIL 10 MG TAB PO SCH (09:00)
[2016-09-01] MEDS ORDERED: ENOXAPARIN 30 MG/0.3 ML SYG SC SCH (09:00)
[2016-09-01] MEDS ORDERED: METOPROLOL (XL) 25 MG TAB PO SCH (09:00)
[2016-09-01 09:02] LABS: ADD SCAN DIFF NO
[2016-09-01] MEDS: CLOPIDOGREL 75 MG TAB PO SCH (09:04)
[2016-09-01] MEDS: ASPIRIN 325 MG TAB PO SCH (09:04)
[2016-09-01] MEDS: CARBIDOPA/LEVODOPA (25/100) TAB PO SCH ×2 (09:04→12:33)
[2016-09-01] MEDS: FAMOTIDINE 20 MG TAB PO SCH (09:05)
[2016-09-01] MEDS: LACTOBACILLUS RHAMNOSUS CAP PO SCH (09:05)
[2016-09-01 09:06] LABS: BASOPHILS % 0.5 % (0.0-2.0); EOSINOPHILS # 0.2 10^3/ul (0.0-0.5); EOSINOPHILS % 3.5 % (0.0-7.0); HEMATOCRIT 28.9 % (42.0-52.0); HEMOGLOBIN 9.3 g/dl (14.0-18.0); LYMPHOCYTES % 15.6 % (15.0-51.0); MEAN CORPUSCULAR HEMOGLOBIN 29.9 pg (29.0-33.0); MEAN CORPUSCULAR HGB CONC 32.2 g/dl (32.0-37.0); MEAN CORPUSCULAR VOLUME 92.9 fl (82.0-101.0); MEAN PLATELET VOLUME 10.7 fl (7.4-10.4); MONOCYTE # 0.6 10^3/ul (0.3-0.9); NEUTROPHIL # 4.4 10^3/ul (1.6-7.5); NEUTROPHILS % 69.9 % (39.0-77.0); PLATELET COUNT 284 10^3/UL (140-415); RED BLOOD COUNT 3.11 10^6/ul (4.70-6.10); RED CELL DISTRIBUTION WIDTH 14.5 % (11.5-14.5); WHITE BLOOD COUNT 6.3 10^3/ul (4.8-10.8)
[2016-09-01 09:22] LABS: CK-MB 2.9 ng/ml (0.0-2.4); TROPONIN-I 1.95 ng/ml (0.00-0.12)
[2016-09-01 09:54] LABS: POTASSIUM 3.5 mmol/L (3.5-5.1)
[2016-09-01 09:56] LABS: CREATININE 0.82 mg/dl (0.61-1.24)
[2016-09-01 09:57] LABS: CALCIUM 8.5 mg/dl (8.4-10.2); MAGNESIUM 1.9 mg/dl (1.7-2.5); PHOSPHORUS 2.9 mg/dl (2.5-4.9)
[2016-09-01] MEDS: MEROPENEM 2 GM in SOD CHLORIDE 0.9% 100 ML IVPB SCH (10:23)
--- NOTE | 2016-09-01 15:32 | PDOCDIS ---
Discharge Instructions DIAGNOSIS Discharge Diagnosis: heart attack CONDITION Patient Condition: Stable HOME CARE INSTRUCTIONS: Special Diet: Cardiac ACTIVITY: Activity Restrictions: Slowly Increase Activity Avoid heavy lifting FOLLOW UP/APPOINTMENTS Appointments Appt Dr Mcclellan/ [place] 1-wk Appt PCP -1wk. Dr Hester? Call your orthopedic surgeon- for appt to evaluate shoulder. ESCOBAR CARRASCO MD September 01, 2016 15:32
[2016-09-01] MEDS ORDERED: FAMO20TA18 PO (15:36)
[2016-09-01] MEDS ORDERED: METO25TA7 PO (15:36)
[2016-09-01] MEDS ORDERED: ASPI325T4 PO (15:36)
[2016-09-01] MEDS ORDERED: LACT1CAP57 PO (15:36)
[2016-09-01] MEDS ORDERED: ACET325T40 PO (15:36)
[2016-09-01] MEDS ORDERED: ATOR80TA75 PO (15:36)
[2016-09-01] MEDS ORDERED: CLOP75TA28 PO (15:36)
--- NOTE | 2016-09-01 16:28 | DS ---
DATE OF ADMISSION: 08/24/2016 DATE OF DISCHARGE: 09/01/2016 PRIMARY CARE PHYSICIAN: Unknown, possibly Dr. Hester. CONSULTANTS: Dr. Shah. DIAGNOSIS ON ADMISSION: Acute encephalopathy. DIAGNOSES ON DISCHARGE: 1. Non-ST elevated myocardial infarction. 2. Ischemic cardiomyopathy. 3. Chronic Parkinson's disorder. 4. Failure to thrive. 5. Acute toxic metabolic encephalopathy. 6. Benign prostatic hypertrophy. 7. Coronary artery disease, EF of 25. 8. Possible history of stroke. 9. Chronic thoracic aortic dilation, 4 cm. No aneurysm. 10. Renal insufficiency. 11. Degenerative joint disease. 12. Extended-spectrum beta-lactamase cystitis. 13. Nephrolithiasis. 14. Anemia. 15. Atelectasis. 16. Recent left upper extremity surgery. HOSPITAL COURSE: This is an 81-year-old gentleman who was found down at home with encephalopathy. Found to have an abnormal troponin and EKG consistent with a myocardial infarction. The patient was admitted for a NSTEMI and encephalopathy. The patient underwent urgent stenting to the LAD with 2 stents. Afterwards he was brought back into the laborer pipeline for 3 stents to the circumflex. He is pre sently stable, ambulating, tolerating a diet and is fit for discharge. Obviously optimized medicall y. His ejection fraction is 25. He will be going home with home health, but needs advanced care pl anning established. He does not have any family nearby and should he becomes incapacitated from ano ther event, it will be challenging to find someone to be his spokesperson. He is going home and has a friend named Audelia, I believe, who will assist in the care plan. Home health safety arranged. 1. Extended spectrum Beta-Lactamases cystitis. The patient finished 5 days of meropenem. 2. Chronic Parkinson's disorder. He has a fall risk, but does not drive a car. 3. Recent left upper extremity surgery, left shoulder tendon repair. He is not weightbearing at [facility] and I have asked him to follow up with ortho. DISCHARGE PLAN: 1. Home. Follow up with primary in 1 week. 2. Cardiology in 1 to 2 weeks. 3. Orthopedic surgeon in 1 to 2 weeks. DIET: Cardiac. ACTIVITY: No heavy lifting, no driving. DURABLE MEDICAL EQUIPMENT: Sling. CODE STATUS: FULL. BARRIERS TO DISCHARGE: None. PENDING TESTS: None. FUNCTIONAL STATUS: The patient is awake, alert and agrees to the plan of care. CONDITION: Stable. ALLERGIES: NO KNOWN DRUG ALLERGIES. REASON FOR ADMISSION: Coronary artery disease. LABORATORY DATA: 2D echo read as EF of 25%, mild concentric LVH, multiple akinetic hypokinetic seg ments, stage I diastolic dysfunction, PA pressure of 33. A PICC line was inserted by ID. Obtained C AT scan of brain: No acute process. Chest x-ray: No acute process. CTA did not show any pulmonary embolism. There is a mildly dilated ascending aorta measuring 4 cm, no dissection, no aneurysm. M ild atelectasis of the lungs. There is cardiomegaly, coronary calcifications, benign cysts in the u pper kidneys, atrophy of the left kidney, mild DJD. MRSA nares negative. White cell count of 5, he moglobin and hematocrit of 8 and 28. MCV 93, platelets of 207. INR 1.1. Tox screen negative. BMP unremarkable. Troponin trending downwards. Protein of 5, albumin of 2. TSH is 2.9. AST and ALT a re 189 and 56, alkaline phosphatase 58, bilirubin 1.3. This is due, obviously, to the heart attack. A1c of 5.4. TSH of 2.9. CONTINUED MEDICATIONS: 1. Benazepril HCTZ 20/12.5 daily. 2. Sinemet 25/100 t.i.d. 3. Plavix 75 daily. 4. Percocet 10 as needed every 4. 5. Flomax 0.4. STOPPED MEDICATIONS: Ultram. NEW MEDICATIONS: 1. Tylenol as needed for pain. 2. Aspirin 325 daily. 3. Lipitor 80. 4. Plavix 75. 5. Pepcid 20. 6. Culturelle 1 capsule twice daily. 7. Toprol-XL 25 daily. Dictated By: ESCOBAR CARRASCO MD AC/NTS Conf#: [id number] DID#: [id number] CC: CHANTALE SHAH MD;*EndCC*
--- NOTE | 2016-09-01 18:17 | RADRPT ---
Vent Rate: 77 bpm RR Interval: 0 msec MI Interval: 168 msec QRS Duration: 104 msec QT Interval: 456 msec QTC Interval: 516 msec P-R-T [place]: 53 - -50 - 106 degrees Sinus rhythm with premature atrial complexes with aberrant conduction Left axis deviation Anteroseptal infarct , age undetermined T wave abnormality, consider lateral ischemia Prolonged QT Abnormal ECG Electronically Signed By: Mario Dexter [id number]
[2016-09-01] MEDS ORDERED: MEROPENEM 1 GM/100 ML (PMX) 100 ML IVPB SCH (21:00)
== END 2016-09-01 20:22 | disposition home health service (06) | DRG 246 ==
LOC: E/R 11:18 → ICU 16:07 → MS4 08-26 02:14 → ICU 08-28 13:59 → TEL 08-28 19:55 → ICU 08-30 09:20 → TEL 08-31 18:22
PROVIDERS: ADMIT Family Medicine; ATTEND Family Medicine
PROC: 02HV33Z Insertion of Infusion Device into Superior Vena Cava, Percutaneous Approach (ICD-10-PCS; 2016-08-24)
PROC: B548ZZA Ultrasonography of Superior Vena Cava, Guidance (ICD-10-PCS; 2016-08-24)
PROC: 4A033R1 Measurement of Arterial Saturation, Peripheral, Percutaneous Approach (ICD-10-PCS; 2016-08-24)
PROC: 4A023N7 Measurement of Cardiac Sampling and Pressure, Left Heart, Percutaneous Approach (ICD-10-PCS; 2016-08-28)
PROC: B2111ZZ Fluoroscopy of Multiple Coronary Arteries using Low Osmolar Contrast (ICD-10-PCS; 2016-08-28)
PROC: B2151ZZ Fluoroscopy of Left Heart using Low Osmolar Contrast (ICD-10-PCS; 2016-08-28)
PROC: 027035Z Dilation of Coronary Artery, One Artery with Two Drug-eluting Intraluminal Devices, Percutaneous Approach (ICD-10-PCS; principal; 2016-08-28 12:00)
PROC: 0270366 Dilation of Coronary Artery, One Artery, Bifurcation, with Three Drug-eluting Intraluminal Devices, Percutaneous Approach (ICD-10-PCS; 2016-08-30)
PROC: 4A023N7 Measurement of Cardiac Sampling and Pressure, Left Heart, Percutaneous Approach (ICD-10-PCS; 2016-08-30)
PROC: B2111ZZ Fluoroscopy of Multiple Coronary Arteries using Low Osmolar Contrast (ICD-10-PCS; 2016-08-30)
DX: I21.4 Non-ST elevation (NSTEMI) myocardial infarction (principal); N17.0 Acute kidney failure with tubular necrosis; G92 Toxic encephalopathy; N30.00 Acute cystitis without hematuria; J98.11 Atelectasis; E87.1 Hypo-osmolality and hyponatremia; I25.10 Atherosclerotic heart disease of native coronary artery without angina pectoris; E86.0 Dehydration; G20 Parkinson's disease; N40.0 Benign prostatic hyperplasia without lower urinary tract symptoms; R74.0 Nonspecific elevation of levels of transaminase and lactic acid dehydrogenase [LDH]; E80.6 Other disorders of bilirubin metabolism; N26.1 Atrophy of kidney (terminal); I12.9 Hypertensive chronic kidney disease with stage 1 through stage 4 chronic kidney disease, or unspecified chronic kidney disease; N18.9 Chronic kidney disease, unspecified; I25.5 Ischemic cardiomyopathy; I77.810 Thoracic aortic ectasia; D64.9 Anemia, unspecified; B96.20 Unspecified Escherichia coli [E. coli] as the cause of diseases classified elsewhere; R33.9 Retention of urine, unspecified; N20.0 Calculus of kidney; R62.7 Adult failure to thrive; M19.90 Unspecified osteoarthritis, unspecified site; Z86.73 Personal history of transient ischemic attack (TIA), and cerebral infarction without residual deficits; Z98.890 Other specified postprocedural states; Z79.02 Long term (current) use of antithrombotics/antiplatelets
CPT/HCPCS: 36415; 36569; 36600; 70450; 71010; 71275; 76937; 80048; 80053; 80076; 80306; 80307; 81001; 81003; 82140; 82247; 82248; 82550; 82553; 82803; 82962; 83036; 83605; 83735; 84100; 84436; 84443; 84479; 84484; 85025; 85610; 85730; 87040; 87081; 87086; 93005; 93306; 93458; 96361; 96365; 96366; 96367; 96375; 97116; 97162; 97530; C1725; C1757; C1769; C1874; C1887; C9600; J0360; J0583; J0692; J0696; J1644; J2185; J2250; J2543; J3010; J3370; J3475; J7030; Q9967

== ENCOUNTER 2017-12-13 10:13 | Inpatient (IN) | END 2017-12-15 14:30 | disposition home or self-care (01) | DRG 247 ==

== ENCOUNTER 2018-05-15 10:57 | Emergency (ER) | payer MEDICARE ==
[~2018-05-15] VITALS: Wt 80.0 kg
[~2018-05-15 10:57] MED LIST changes: -ASPI-535 PO; +ASPI325T30 PO; +ATOR-2 PO; +BENA20TA4 PO; +BICA50TA5 PO; -CARV12.579 PO; +CLOP75TA27 PO; -IBUP-725 PO; -TAMS-14 PO; +TAMS0.4C2 PO; -ZOLP10TA5 PO
[2018-05-15 11:08] VITALS: BP 131/82; PULSE 87; RESP 18
--- NOTE | 2018-05-15 13:06 | ERD ---
ER Documentation Chief Complaint Chief Complaint LEFT MARY GRACE PAIN AFTER A [facility] HPI 83-year-old male, currently taking Plavix, presents to the emergency department, complaining of left knee pain after a mechanical fall that occurred yesterday after stepping on an unleveled floor. The pain is dull, constant, 6/10. Medications taken:none. He denies any distal weakness, numbness or tingling. No head trauma, no loss of consciousness. ROS All systems reviewed and are negative except as per history of present illness. Medications Home Meds Active Scripts Tramadol HCl (Tramadol HCl) 50 Mg Tablet, 50 MG PO Q6 PRN for PAIN, #20 TAB Prov:INGRID BETHEA MD 05/15/18 Reported Medications Bicalutamide* (Casodex*) 50 Mg Tablet, 50 MG PO DAILY, TAB 12/13/17 Benazepril Hcl* (Benazepril Hcl*) 20 Mg Tablet, 20 MG PO TID, #60 TAB 12/13/17 Clopidogrel Bisulfate (Clopidogrel) 75 Mg Tablet, 75 MG PO DAILY, #30 TAB 12/13/17 Tamsulosin Hcl* (Tamsulosin Hcl*) 0.4 Mg Cap.er.24h, 0.4 MG PO HS, CAP 12/13/17 Atorvastatin* (Atorvastatin*) 80 Mg Tablet, 80 MG PO QHS, #30 TAB 12/13/17 Aspirin* (Aspirin*) 325 Mg Tablet, 325 MG PO DAILY, TAB 12/13/17 Allergies Allergies: Coded Allergies: No Known Allergy (Unverified , 12/13/17) PMhx/Soc History of Surgery: Yes (ptca, knee surgery, lithotripsy) Anesthesia Reaction: No Hx Neurological Disorder: No Hx Respiratory Disorders: No Hx Cardiac Disorders: No Hx Psychiatric Problems: No Hx Miscellaneous Medical Probl: No Hx Alcohol Use: No Hx Substance Use: No Hx Tobacco Use: No Physical Exam Vitals Vital Signs Date Temp Pulse Resp B/P (MAP) Pulse Ox O2 O2 Flow FiO2 Time Delivery Rate 05/15/18 98.1 87 18 131/82 99 11:08 (98) Physical Exam Const: No acute distress Head: Atraumatic Eyes: Normal Conjunctiva ENT: Normal External Ears, Nose and Mouth. Neck: Full range of motion. No meningismus. Resp: Clear to auscultation bilaterally Cardio: Regular rate and rhythm, no murmurs Abd: Soft, non tender, non distended. Normal bowel sounds Skin: No petechiae or rashes Back: No midline or flank tenderness Ext: Left knee: Mild effusion, no gross deformity, no warmth, no erythema or tenderness. Decreased range of motion due to effusion. Distal neurovascular exam intact. Neur: Awake and alert Psych: Normal Mood and Affect Results 24 hrs DIAGNOSTIC IMAGING REPORT Patient: OXANA [place]ORADO : 1935 Age: 83 Sex: M MR #: [id number] DOS: 05/15/18 1321 Ordering MD: INGRID BETHEA MD Location: [facility]TE Room/Bed: PROCEDURE: Left knee radiographs. CLINICAL INDICATION: Trauma due to a fall. Left knee pain. TECHNIQUE: Three views. Frontal, lateral, and oblique. COMPARISON: No prior studies are available for comparison. FINDINGS: There is no fracture or dislocation. There are vascular calcifications consistent with atherosclerosis. There is a moderate joint effusion. There are degenerative changes with osteophytes arising from all 3 joint compartment margins. There is no lytic or blastic lesion. There is no radiopaque foreign body. IMPRESSION: 1. Atherosclerosis. 2. Moderate joint effusion. 3. Degenerative changes. 4. Otherwise unremarkable images of the left knee. RPTAT: QQ .Luc Zuniga MD, Date Time Electronically viewed and signed by .Luc Zuniga MD, MD on 05/15/2018 14:15 .R/ CC: INGRID BETHEA MD [id number] Procedures/MDM Acute left knee pain: no red flags. Differential diagnosis include but not limited to: Knee contusion, meniscus injury, tendon/ligament injury, arthritis; low suspicion for fracture, dislocation, septic arthritis. Neurovascular exam grossly intact. no clinical findings suggestive of acute infectious process, no acute deformity, no edema, no rashes. Pertinent Data: X-rays: No fracture or dislocation Physical examination and clinical presentation consistent most likely with acute knee contusion. During the ED course the patient remained stable. Results and clinical impression discussed with the patient who agrees with management. The patient is stable to be treated outpatient and will be discharged home with recommendations for ice, rest and partial immobilization. toradol 3 times daily for 5 days and close monitoring. The patient was instructed to follow up with the primary care provider in the ne xt 48h. If symptoms persist, worsen or new symptoms develop, then patient should return to the ED immediately. Instructions explained and given to patient with acknowledgment and demonstrated understanding. Disclaimer: Inadvertent spelling and grammatical errors are likely due to EHR/dictation software use and do not reflect on the overall quality of patient care. Also, please note that the electronic time recorded on this note does not necessarily reflect the actual time of the patient encounter. Departure Diagnosis: Primary Impression: Contusion of left knee Additional Impression: Platelet inhibition due to Plavix Condition: Stable Additional Instructions: Thank you very much for allowing us to participate in your care. Your health and safety is our top priority at [facility]. Call your primary care doctor TOMORROW for an appointment during the next 2-4 da ys and bring all the information and medications prescribed. Have prescriptions filled and follow precisely the directions on the label. If the symptoms get worse and your provider is unavailable, return to the Emergency Department immediately. INGRID BETHEA MD May 15, 2018 13:06
[2018-05-15] MEDS ORDERED: TRAM50TA2 PO (14:33)
== END 2018-05-15 15:00 | disposition home or self-care (01) ==
LOC: FTE 10:57
DX: S80.02XA Contusion of left knee, initial encounter (principal); D69.1 Qualitative platelet defects; W18.30XA Fall on same level, unspecified, initial encounter; Y92.9 Unspecified place or not applicable; Z79.01 Long term (current) use of anticoagulants; Z79.82 Long term (current) use of aspirin
CPT/HCPCS: 73562

== ENCOUNTER 2019-02-21 08:11 | Day surgery (SDC) | payer MEDICARE ==
[~2019-02-21] VITALS: Ht 170.2 cm; Wt 66.7 kg
[2019-02-21] VITALS (10 sets, daily range): BP systolic 117–163; BP diastolic 71–94; PULSE 56–61; RESP 18–31; Ht 170.2 cm; Wt 66.7 kg
[~2019-02-21 08:11] MED LIST changes: +ACETAMINOPHEN 500 MG TAB PO ONE; +ASPI-903 PO; +BICA50TA47 PO; +BROMFENAC SODIUM 1.7 ML OPH DROP OPER SCH; +CARB1TAB3 PO; +CYCLOPENTOLATE 2% 2 ML OPH OPER SCH; +HYDR25TA6 PO; +LACTATED RINGER'S 1,000 ML IV SCH; +LIDOCAINE 3.5% GEL TUBE OPER ONE; +MOXIFLOXACIN 0.5% 3 ML OPH OPER SCH; +NITR100C7 PO; +PHENYLephrine 10% 5 ML OPH OPER SCH; +PRIM250T37 PO; +TRAM50TA2 PO; +TROPICAMIDE 1% 15 ML OPH OPER SCH
[2019-02-21] MEDS: TETRACAINE 0.5% 4 ML OPH OPER SCH ×2 (08:53→10:45)
[2019-02-21] MEDS ORDERED: EPINEPHrine 1 MG INJ ONE (09:57)
[2019-02-21] MEDS ORDERED: TRYPAN BLUE 0.5 ML SYG IO ONE (09:57)
[2019-02-21] MEDS ORDERED: TOBRAMYCIN/DEXAMETH 3.5 GM OPH OINT ONE ×2 (09:57→10:59)
[2019-02-21] MEDS ORDERED: LIDOCAINE 1.5%/EPI MPF (SDV) 30 ML VIAL ONE (09:57)
[2019-02-21] MEDS ORDERED: CARBACHOL 0.01% 1.5 ML OPH INJ ONE (09:57)
[2019-02-21] MEDS ORDERED: FENTAnyl 50 MCG/ML VIAL ONE (10:24)
[2019-02-21] MEDS ORDERED: CEFAZOLIN 1 GM INJ ONE (10:25)
[2019-02-21] MEDS ORDERED: ACETAMINOPHEN 500 MG TAB PO PRN (10:30)
[2019-02-21] MEDS ORDERED: ACETAMINOPHEN 325 MG TAB PO PRN (10:30)
[2019-02-21] MEDS ORDERED: ALBUTEROL 0.083% (NEB) 2.5 MG/3 ML AMP HHN PRN (10:30)
[2019-02-21] MEDS ORDERED: OXYCODONE/ACETAMINOPHEN (5/325) TAB PO PRN (10:30)
[2019-02-21] MEDS ORDERED: DIPHENHYDRAMINE 50 MG INJ IV PRN (10:30)
[2019-02-21] MEDS ORDERED: LABETALOL HCL 20MG INJ IV PRN (10:30)
[2019-02-21] MEDS ORDERED: FENTAnyl 50 MCG/ML VIAL IV PRN (10:30)
[2019-02-21] MEDS ORDERED: ONDANSETRON 4 MG INJ IV PRN (10:30)
[2019-02-21] MEDS ORDERED: hydrALAzine 20 MG INJ IV PRN (10:30)
[2019-02-21] MEDS ORDERED: hydrALAzine 20 MG INJ ONE (10:31)
[2019-02-21] MEDS ORDERED: NA HYALURONATE/CHONDROITIN 0.5 ML SYG RIGHT EYE ONE (10:46)
== END 2019-02-21 12:30 | disposition home or self-care (01) ==
LOC: SDS 08:11
PROVIDERS: ATTEND Ophthalmology
DX: H25.11 Age-related nuclear cataract, right eye (principal); I10 Essential (primary) hypertension; I25.10 Atherosclerotic heart disease of native coronary artery without angina pectoris; I25.2 Old myocardial infarction; Z79.82 Long term (current) use of aspirin
CPT/HCPCS: 66984; J0171; J0360; J0690; J3010; V2632